=== PATIENT | female | born 1955 | race Caucasian/White ===

== ENCOUNTER 2025-04-28 16:45 | Emergency (ER) | payer MEDICARE, OTHER, SELFPAY ==
--- NOTE | ~2025-04-28 | XR_ITS ---
XR wrist LT min 3V Ordering provider: Candace Ruiz APRN History: . pain, fall . Comparison: None. FINDINGS: BONES: Possible lucency in the scaphoid bone. Follow-up advised. Postoperative changes in the distal radius. Old fracture in the ulnar styloid. JOINT SPACES: Narrowing of the radiocarpal joint. 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 SOFT TISSUES: Normal. IMPRESSION: No definite acute osseous abnormality left wrist. Possible lucency in the scaphoid bone. Follow-up ad vised. 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 Reviewed, dictated and finalized at location A. IMPRESSION: No definite acute osseous abnormality left wrist. Possible lucency in the scaph oid bone. Follow-up advised. Postoperative changes in the distal radius Narrowing of the radiocarpal joint with osteoarthritic changes of the first car pometacarpal joint.
--- OUTSIDE RECORDS SUMMARY | 2025-04-28 16:49 | XMS_ITS | Encounter Summary ---
Author Organization [facility] Address [facility] [place] [address] Care Team Providers Care Manager Customs Name Role Phone Micaela Mckay MD Primary Care Provider [phone] Darryl Hollingsworth MD Unavailable Vanessa Wilson MD Unavailable [phone] Baljinder Kent MD Unavailable [phone] Filiberto Orona MD Unavailable Blayne Christiansen MD Unavailable [phone] Lennox Tobin MD Unavailable [phone] Vanessa Wilson MD Unavailable [phone] Berto Samson MD Unavailable Lester Hendrix OD Unavailable Bryan Anderson MD Unavailable Baudilio Parish MD Unavailable [phone] Zach Khoury MD Unavailable Anton Sauer MD Unavailable Tejas Lazcano DC Unavailable Vu Lindsay MD PhD Unavailable [phone] Encounter Details Date Type Department Care Team (Late st Contact Info) Description 03/20/2021 Telephone [facility] [address] [place] [id number] Laury Sauer, RT Social History Tobacco Use Types Packs/Day Years Used Date Smoking Tobacco: Never Smokeless Tobacco: Never Alcohol Use Standard Drinks/Week Comments Yes 0 (1 standard drink = 0.6 oz pur e alcohol) very rare PHQ-2 Answer Date Recorded PHQ-2 Total Score (If total score is 3 or more points, staff should administer the PHQ-9) 0 05/23/2020 Comments No Sex and Gender Information Value Date Recorded Sex Assigned at Not on file Legal Sex Female 11:59 PM CONE [employer]RE[employer] Gender Identity Not on file Sexual Orientation Not on file 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 Not on file Not on file documented as of this encounter Plan of Treatment Not on file documented as of this encounter Visit Diagnoses Not on filedocumented in this encounter Care Teams Manager Customs Relationship Specialty Start Date End Date Micaela Mckay MD PCP - General 02/28/17 Darryl Hollingsworth MD Gastroenterology 08/24/17 10/17/24 Vanessa Wilson MD Surgeon Orthopedic Surgery 08/24/17 06/06/21 Baljinder Kent MD Otolaryngology 08/24/17 10/17/24 Filiberto Orona MD [address] [place] [address] DR MULLER B [address]ERT[address] CAR[address] [place], [place] [id number] Surgeon Orthopedic Surgery 08/24/17 Blayne Christiansen MD [address] [place] [address] DR RENZO Balderas [address] [place] [address] Obstetrics and Gynecology 08/24/17 Lennox Tobin MD [address] [place] [address] DR RENZO Balderas [address] [place] [address] General Surgery 08/24/17 Vanessa Wilson MD Surgeon Orthopedic Surgery 08/29/17 06/06/21 Berto Samson MD [address] [facility] [address] [place] [address] [id number] Consulting Physician Internal Medicine 09/30/17 Lester Hendrix OD [address] [place] [address] Optometry 03/31/18 Bryan Anderson MD [address] [place] [address] Consulting Physician Gastroenterology 05/09/19 Baudilio Parish MD [address] [place] [address] Consulting Physician Endocrinology Diabetes & Metabolism 05/12/19 Zach Khoury MD [address] [place] [address] Consulting Physician Neurology 07/09/21 Anton Sauer MD [address] [facility] [id number] [place] [address] Consulting Physician General Surgery 07/05/22 Tejas Lazcano DC [address] [place] [address] [place] [address] Referring Physician Chiropractic Medicine 08/27/23 Vu Lindsay MD PhD [address] [place] [address] Consulting Physician Orthopedic Surgery 11/22/24 documented as of this encounter
--- OUTSIDE RECORDS SUMMARY | 2025-04-28 16:49 | XMS_ITS ---
Author Organization [facility] Address [address] [place] [address] Care Team Providers Care Bag Shaker Name Role Phone Micaela Mckay MD Primary Care Provider [phone] Filiberto Orona MD Unavailable Blayne Christiansen MD Unavailable [phone] Lennox Tobin MD Unavailable [phone] Berto Samson MD Unavailable Lester Hendrix OD Unavailable Bryan Anderson MD Unavailable [phone] Baudilio Parish MD Unavailable [phone] Zach Khoury MD Unavailable Anton Sauer MD Unavailable Tejas Lazcano DC Unavailable [phone] Vu Lindsay MD PhD Unavailable [phone] Active Problems Problem Noted Date Diagnosed Date Herpes zoster without complication 01/06/2025 Assessment & Plan (01/06/2025 1:56 PM MECHANICAL ASSEMBLY TECHNICIAN): Acute, symptoms for 2 days. Vesicular rash to posterior left upper shoulder consistent with herpes zoster. Given that she just started chemo for liver mets explained valtrex may not be an option, also given that chemo is administered through a femoral sheath- she was advised to avoid NSAIDs. Can still use Voltaren gel if needed. Rx valtrex 1000mg BID x7 days [facility] but patient was advised to call oncology first to make sure. Benign colon polyp 11/11/2024 History of colon polyps 11/05/2024 Hx of adenomatous colonic polyps 09/11/2021 Overview (09/11/2021): Added automatically from request for surgery [id number] Osteoporosis, idiopathic 03/21/2021 Overview (09/01/2023): DEXA August 2023 Dissimilar scan types or analysis methods precludes assessment for calculating a significant change. Advised PTH, vitamin-D, follow-up to discuss osteoporosis treatment options AP LUMBAR SPINE L1-L4:Total BMD is 0.847 g/cm2 T-score is -1.8 LEFT HIP:Total BMD is 0.697 g/cm2 T-score is -2.0 Femoral neck BMD is 0.580 g/cm2 T-score is -2.4 FRAX: 10 year risk for a major osteoporotic fracture is 13 %, 10 year risk for a hip fracture is 3.0 % DEXA March 2021 LEFT FEMORAL NECK: T-score -2.3. Bone mineral density 0.594 g/sq/cm. LEFT TOTAL HIP: T-score -1.8. Bone mineral density 0.726 g/sq/cm. This is a statistically significant decrease from prior exam. LUMBAR SPINE: T-score -1.5. Bone mineral density 0.878 g/sq/cm. This is a statistically significant decrease from prior exam. Sleep disorder breathing 05/30/2020 Overview (07/09/2021): Test shy of 0 F a July 2021 referred to sleep medicine Impression: 1. Reduced sleep efficiency. 2. Mild to moderate snoring. 3. Apneas and hypopneas were present. Present study fall short of overall CMS criteria for obstructive sleep apnea syndrome. 4. Even though the overall AHI fell short, patient had severe sleep disorder breathing in the REM supine. 5. Given the night to night variability, consider repeating a sleep study to further assess for sleep disorder breathing. 6. Severe periodic limb movements of sleep were noted. 7.Sleep hygiene should be reviewed to assess factors that may improve sleep quality. 8.Weight management and regular exercise should be initiated or continued . 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 Samson s/p TACE. 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 -f/b [place] outpatient VIR recommendations for discharge medications: Oxycodone 5 mg, 1 tab PO Q4 hours PRN pain #20, no refills Zofran 8 mg, 1 tab PO BID PRN nausea #10, no refills Senna 8.6 mg, 1 tab PO QHS PRN constipation #10, no refills --> will change to Miralax per pt preference - VIR recommendations for discharge follow up: Follow up liver MRI in 4-5 weeks to be arranged by patient's referring physician. Assessment & Plan (03/24/2019 9:12 PM CDT): Chronic. Plan Monitor LFTs. F/U with Oncologist. Neuroendocrine cancer 09/08/2017 Family history of pancreatic cancer 08/29/2017 Overview (08/29/2017): Identical twin Pancreatic cancer diagnosed a August 2017 at age 63 Family history of colon cancer 08/29/2017 Overview (08/29/2017): Twin sister diagnoses at 61 Chronic rhinitis 08/24/2017 Hypertension, essential 04/16/2014 Overview (03/05/2017): Benign essential HTN Assessment & Plan (12/30/2024 6:14 PM MECHANICAL ASSEMBLY TECHNICIAN): Continue home coreg Assessment & Plan (11/30/2024 3:17 PM MECHANICAL ASSEMBLY TECHNICIAN): Continue home coreg Assessment & Plan (07/03/2023 12:46 PM CDT): BP stable in office today on current therapy. No acute findings on exam. Continue current regimen and low salt diet. Multiple-type hyperlipidemia 04/16/2014 Overview (03/05/2017): Hyperlipemia, mixed Hypothyroidism, unspecified 04/16/2014 Overview (03/07/2017): Hypothyroidism Assessment & Plan (12/30/2024 6:14 PM MECHANICAL ASSEMBLY TECHNICIAN): Continue home LT4 Assessment & Plan (11/30/2024 3:17 PM MECHANICAL ASSEMBLY TECHNICIAN): Continue home synthroid Assessment & Plan (06/05/2020 1:29 PM CDT): Continue levothyroxine 150 mcg daily Patient clinically and biochemically euthyroid Current Treatment and Therapy Plans Octreotide 28 Day Cycles - Carcinoid* Plan Start Date:10/26/2017 Plan Provider:Berto Samson MD Linked Problems Metastatic malignant neuroen docrine 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 (HCC) Treatment Medications Current Day (Day 1 , Cycle 99 - Planned for 05/02/2025) octreotide (SandoSTATIN LAR) octreotide LAR (SandoSTATIN LAR) octreotide LAR (SandoSTATIN LAR) extende d release intramuscular injection 30 mg Past Treatment and Therapy Plans Oncology Supportive Care Therapy Plan Plan Name Start Date Discontinue Date Treatment Medications Discontinue Reason Plan Provider IV MAINTENANCE THERAPY PLAN 05/11/2018 02/10/2024 No medications scheduled. Automatic discontinuation of dormant plans eBrto Samson MD Lifetime Dose Tracking * Chemical Lifetime Dose Automatic Entry Manual Entr y doxorubicin 54.645 mg/m2 (100 mg) 54.645 mg/m2 (100 m g) 0 mg/m2 (0 mg) Fluoro Time 35 minutes 35 minutes 0 minutes doxorubicin isotoxic equivalent (Please manually verify calculation) 54.645 mg/m2 (100 mg) 54.645 mg/m2 (100 mg) 0 mg/m2 (0 mg) Air kerma at the reference point (Ka,r) 1,076 mGy 1,076 mGy 0 mGy Resolved Problems Problem Noted Date Diagnosed Date Resolved Date Acute pain of left shoulder 07/03/2023 11/03/2024 Assessment & Plan (07/03/2023 12:53 PM CDT): Sharp stabbing for 2-3 days that will radiate to L lateral chest and cause SOB. No acute findings on exam, mild tenderness to L upper trapezius. No acute cardiac symptoms. Likely muscular in nature. Encouraged Ibuprofen as needed, heat/ice as tolerated. Call if pain not improved in 2 weeks. Diverticulitis of colon with perforation 03/21/2022 11/03/2024 Overview (03/21/2022): Flagyl , Septra combination used to treat acute diverticulitis left lower quadrant, 1. Diverticulitis of the descending colon with contained perforation. No evidence of abscess. 2. No small bowel obstruction or appendicitis. 3. Similar appearance of hepatic metastatic disease to recent liver MRI. THIS IS AN ELECTRONICALLY VERIFIED FINAL REPORT 03/21/2022 4:36 PM Electronically signed by Dhruv Montalvo M.D. Assessment & Plan (05/21/2022 11:12 AM CDT): Patient has been on antibiotics since diagnosed, and finally is pain free and tolerated food intake over the last 10 days. At this time, recommended to stop oral antibiotics and schedule follow up with her previous surgeon, at [place], due to her previous surgical history. If symptoms return, recommend going to [facility]. Assessment & Plan (05/09/2022 4:05 PM CDT): Recently diagnosed with acute diverticulitis with contained perforated proven on CT. She continues to have left lower quadrant pain and 10 and has remained on oral metronidazole and Bactrim. I do not recommend a repeat colonoscopy since she just had 1 performed in October 2021. I reviewed the colonoscopy report from October 2021 that revealed 5 polyps and pancolonic diverticulosis. I do recommend referral and evaluation for colectomy because of the complicated diverticular disease. She was advised to continue antibiotics and to call me if pain persists after she completes the course. Assessment & Plan (04/05/2022 1:52 PM CDT): Patient seen 2 weeks ago with reports of acute LLQ abdominal pain. CT performed and revealed acute diverticulitis with perforation. She completed a course of bactrim and flagyl and pain significantly improved. She had f/u CT scan that revealed continued acute diverticulitis but no signs of perforation or abscess. Given no pain on exam and patient reporting much improved, will monitor. Discussed with Dr. Mckay and we will continue Bactrim and Flagyl x 2 more weeks given the microperforation on previous scan. Will follow up post antibiotic or sooner if needed. She will be referred by to her GI specialist Dr. Anderson Assessment & Plan (04/19/2022 2:23 PM CDT): She has a contained microperforation of the descending colon. She is doing much better with antibiotics. Bowels are a little loose at times, but other times soft and formed. There is no blood in the stools. I suggested an active yogurt culture daily or a probiotic to see if this helps. Check some labs today and get a follow-up CT scan in about one week. Return after CT scan. If she develops worse symptoms before the CT scan, she should let us know or go to the emergency room. LLQ pain 03/20/2022 04/17/2022 Assessment & Plan (04/13/2022 7:29 PM CDT): She has a history of carcinoid syndrome and is on octreotide once a month. The octreotide makes her little constipated. Yesterday she had onset of severe pain in the left lower quadrant. She was doubled over. However, she did have a relatively normal bowel movement. There was no blood or mucus in the stool. She felt chilled and had malaise. Today she felt a little bit better, pain is still at least moderate. On exam, bowel sounds are normal, and the right side of the abdomen is nontender. She has exquisite tenderness on the left side with some voluntary guarding, but no rigidity or rebound tenderness. We ordered a stat CT and CBC with BMP. We will get her started on antibiotics for possible diverticulitis (history of multiple small mouth diverticuli on colonoscopy). Depending on how she does, follow-up tomorrow in the office. Acute bacterial sinusitis 05/15/2021 Assessment & Plan (05/15/2021 8:56 AM CDT): Patient presents with sinus pressure, cough, congestion, and sore throat x 3 weeks. She has been using her OTC sinus care without change or improvement. She has symptoms and exam findings consistent with acute sinusitis. She was encouraged to continue with sinus rinses, flonase and Mucinex. She is to call with any worsening or persistent symptoms. Allergic rhinitis 04/17/2021 01/11/2022 Assessment & Plan (04/17/2021 9:18 AM CDT): Avoid ear cleaning techniques Avoid water to ears Flonase 2 sprays into each nostril while looking down over the sink, do not sniff in or blow nose after use for at least 30 minutes Continue Singulair and start Zyrtec (cetirizine) 10 mg daily as needed Bilateral impacted cerumen 04/17/2021 0 01/11/2022 Assessment & Plan (04/17/2021 9:18 AM CDT): Avoid ear cleaning techniques Avoid water to ears Type 2 diabetes mellitus wit hout complication, without long-term current use of insulin 12/14/2020 11/03/2024 Right wrist pain 08/14/2020 07/03/2023 Assessment & Plan (08/14/2020 4:04 PM CDT): Right wrist pain and swelling after a fall this morning while walking the dog. We will get x-rays today of radius and ulna. Continue to use RICE therapy. Tramadol given for 50mg BID as needed with tylenol and pain agreement signed. WE will call her with results. Stress at home 05/13/2019 05/17/2020 Overview (11/12/2019): became very ill after lumbar spine surgery with an infection Adrenal mass 02/15/2019 11/03/2024 Assessment & Plan (06/05/2020 1:28 PM CDT): Small and stable in size, consistent with adenoma. Will check DST this year Follow-up images of adrenal nodule can be done with her scheduled images every 6 months for her neuroendocrine tumor Assessment & Plan (02/15/2019 7:29 PM CDT): Small in size, consistent with adenoma. While it reported as new lesion on most recent MRI, it can still be seen on previous MRI from October and May 2018. This is unlikely new within the last year. However we will continue surveillance with images Will check adrenal function with dexamethasone suppression test, and serum metanephrine/catecholamines. Follow-up images of adrenal nodule can be done with her scheduled images every 6 months for her neuroendocrine tumor May consider CT adrenal if size increased Post-surgical hypothyroidism 02/15/2019 05/17/2020 Assessment & Plan (02/15/2019 2:49 PM CDT): Continue levothyroxine 150 mcg daily Check thyroid function test Patient clinically and biochemically euthyroid RUQ pain 11/02/2018 05/17/2020 Overview (11/02/2018): Added automatically from request for surgery [id number] Gastroesophageal reflux disease 11/02/2018 01/11/2022 Overview (11/02/2018): Added automatically from request for surgery [id number] Assessment & Plan (03/24/2019 9:17 PM CDT): Chronic. Doing better on PPI and H2RA at bedtime. She was counseled about eating habits, lifestyle. Sensation of fullness in left ear 07/30/2018 05/17/2020 Assessment & Plan (07/30/2018 11:46 AM CDT): If hearing does not seem to be back to normal, will obtain a hearing test ETD (Eustachian tube dysfunction), left 07/30/2018 12/14/2020 Assessment & Plan (07/30/2018 11:46 AM CDT): Flonase 2 sprays into each nostril while looking down over the sink, do not sniff in or blow nose after use. Continue Protonix in the morning, if no improvement in heartburn in one more month, then start Zantac 300 mg at bedtime. If hearing does not seem to be back to normal, will obtain a hearing test Laryngopharyngeal reflux (LPR) 07/30/2018 12/14/2020 Assessment & Plan (07/30/2018 11:46 AM CDT): Continue Protonix in the morning, if no improvement in heartburn in one more month, then start Zantac 300 mg at bedtime. LPR discussed and Handout provided Insomnia, transient 10/07/2017 03/31/20 18 Overview (10/07/2017): Trial trazodone October 2017 for cancer associated insomnia Internal derangement of left knee 08/29/2017 11/03/2024 Overview (08/29/2017): Bucket tear left knee meniscus removed Dr. Love July 2017 Angiolipoma 08/29/2017 03/31/2018 Overview (08/29/2017): Steve lazaro remove the tumor right thigh July 2017 benign pathology Left upper quadrant pain 08/29/201712/2017 Viral URI 08/29/2017 03/31/2018 Obesity (BMI 30-39.9) 08/24/20172023 Mass of lower extremity 12/26/2016 0512/2017 Mass of breast 08/24/2014 03/31/2018 Overview (03/06/2017): Breast mass Chronic GERD 04/16/2014 11/03/2024 Overview (03/05/2017): Acid reflux disease Neurogenic bladder 04/16/2014 8 Overview (03/05/2017): Neurogenic bladder Vitamin D deficiency 04/16/2014 018 Overview (03/05/2017): Vitamin D deficiency Pain in female pelvis 02/21/20142017 Myofascial pain 02/21/2014 03/31/2018 Arthritis 02/16/2014 11/03/2024 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
--- OUTSIDE RECORDS SUMMARY | 2025-04-28 16:49 | XMS_ITS | Referral Summary ---
Author Organization [facility] Address [address] [place] [address] Care Team Providers Care Front Desk Lead Name Role Phone Micaela Ren MD Primary Care Provider [phone] Filiberto Orona MD Unavailable Blayne Christiansen MD Unavailable [phone] Lennox Tobin MD Unavailable [phone] Berto Samson MD Unavailable Lester Hendrix OD Unavailable Bryan Anderson MD Unavailable [phone] Baudilio Parish MD Unavailable [phone] Zach Khoury MD Unavailable Anton Sauer MD Unavailable Tejas Lazcano DC Unavailable [phone] Vu Lindsay MD PhD Unavailable [phone] Encounters Date Type Department Care Team Description 04/28/[address] 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9) 03/28/2025 Orders Only [facility] [address] [place] [address] Floor [address] [place] [address] Berto Samson MD 03/07/2025 7:30 AM CDT Lab [facility] [address] [place] [phone] 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) 03/07/2025 8:00 AM CDT Infusion [address] [address] 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) from Last 3 Months Allergies Active Allergy Reactions Criticality Noted Date Comments Amoxicillin-Pot Clavulanate Diarrhea Low 07/23/20 17 Reaction: Diarrhea, Medications octreotide LAR (SandoSTATIN LAR) 30 mg suspension,extende d rel reconIndications:M etastatic malignant neuroendocrine 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 (HCC) 1 each (30 mg total) every 28 (twenty-eight) days Active multivitamin capsule Take 1 capsule by mouth daily Active cholecalciferol (VITAMIN D-3) 2000 unit capsule 2 capsules (4,000 Units total) Active calcium-magnesium- zinc tablet Take by mouth Acti ve diclofenac sodium (VOLTAREN) 1 % gel Apply topically as needed Active turmeric root extract 500 mg capsule Take 1 capsule by mouth 2 (two) times a day 03/22/20 22 Active albuterol HFA (PROVENTIL HFA,VENTOLIN HFA,PROAIR HFA) 90 mcg/actuation inhalerIndications :Wheezing Inhale 2 puffs every 4 (four) hours as needed for wheezing 8.5 each 2 11/03/20 24 Active azelastine (ASTELIN) 137 mcg (0.1 %) nasal sprayIndications:C hronic rhinitis Administer 1 spray into each nostril 2 (two) times a day Use in each nostril as directed 30 mL 11 12/04/20 24 Active carvediloL (COREG) 25 mg tabletIndications: Benign hypertension Take 0.5-1 tablets (12.5-25 mg total) by mouth 2 (two) times a day with meals Take 12.5 mg in the A.M. and 25 mg in the P.M. to keep blood pressure below 130/80 180 tablet 2 11/03/20 24 Active fluticasone propionate (FLONASE) 50 mcg/actuation nasal sprayIndications:C hronic rhinitis Administer 2 sprays into each nostril daily 3 each 1 11/03/20 24 Active ipratropium (ATROVENT) 21 mcg (0.03 %) nasal sprayIndications:C hronic rhinitis Administer 2 sprays into each nostril 2 (two) times a day as needed for rhinitis 30 mL 5 11/03/20 24 Active montelukast (SINGULAIR) 10 mg tabletIndications: Chronic rhinitis Take 1 tablet (10 mg total) by mouth nightly 90 tablet 2 11/03/20 24 Active rosuvastatin (CRESTOR) 20 mg tabletIndications: Multiple-type hyperlipidemia Take 1 tablet (20 mg total) by mouth daily 90 tablet 2 11/03/20 24 Active levothyroxine (SYNTHROID) 125 mcg tabletIndications: Hypothyroidism, adult Take 1 tablet (125 mcg total) by mouth nightly 90 tablet 2 11/03/20 24 Active docusate sodium (COLACE) 100 mg capsuleIndications :constipation Take 1 capsule (100 mg total) by mouth 2 (two) times a day Active polyethylene glycol (MIRALAX) 17 gram/dose bulk powder Take 17 g by mouth daily as needed (as needed to achieve daily BM) 510 g 12/01/19 25 Active ondansetron ODT (ZOFRAN-ODT) 4 mg disintegrating tabletIndications: Nausea and Vomiting Take 1 tablet (4 mg total) by mouth every 6 (six) hours as needed for nausea or vomiting 20 tablet 12/31/19 25 Active Additional Information Patient not taking.Reported on 03/29/2025 senna (SENOKOT) 8.6 mg tablet Take 1 tablet by mouth daily for 30 doses 30 tablet 12/31/19 25 Active LORazepam (ATIVAN) 0.5 mg tablet Take 1 tablet (0.5 mg total) by mouth as needed for anxiety Take one tablet one hour prior to MRI. May take second tablet just prior to MRI if still feeling anxiety 2 tablet 04/19/20 25 Active LORazepam (ATIVAN) 0.5 mg tablet Take 1 tablet (0.5 mg total) by mouth as needed for anxiety Take one tablet one hour prior to MRI. May take second tablet just prior to MRI if still feeling anxiety 2 tablet 01/12/20 25 025 Discontin ued(Reord er) Active Problems Problem Noted Date Diagnosed Date Herpes zoster without complication 01/06/2025 Assessment & Plan (01/06/2025 1:56 PM DENTAL ASSISTANT INSTRUCTOR): Acute, symptoms for 2 days. Vesicular rash [...] (09/11/2021): Added automatically from request for surgery [id number] Osteoporosis, idiopathic 03/21/2021 Overview (09/01/2023): DEXA August [...] continued . 9.Avoid alcohol sedatives and other CREDIT CONTROL ADMINISTRATOR depression that may worsen sleep and disrupt normal sleep architecture Metastatic malignant neuroendocrine tumor to demetrio er 09/09/2017 Assessment & Plan (12/31/2024 11:37 AM DENTAL ASSISTANT INSTRUCTOR): Metastatic NET to liver on octreotide (next on 01/10) followed by Dr. Samson s/p TACE. -no issues post procedure -dc home with IR recommendation medications -outpatient follow up w onc and IR Assessment & Plan (12/01/2024 9:47 AM DENTAL ASSISTANT INSTRUCTOR): Metastatic neuroendocrine tumor to the liver on [...] HTN Assessment & Plan (12/30/2024 6:14 PM DENTAL ASSISTANT INSTRUCTOR): Continue home coreg Assessment & Plan (11/30/2024 3:17 PM DENTAL ASSISTANT INSTRUCTOR): Continue home coreg Assessment & Plan (07/03/2023 12:46 PM CDT): BP stable in office today on current therapy. No acute findings on exam. Continue current regimen and low salt diet. Multiple-type hyperlipidemia 04/16/2014 Overview (03/05/2017): Hyperlipemia, mixed Hypothyroidism, unspecified 04/16/2014 Overview (03/07/2017): Hypothyroidism Assessment & Plan (12/30/2024 6:14 PM DENTAL ASSISTANT INSTRUCTOR): Continue home LT4 Assessment & Plan (11/30/2024 3:17 PM DENTAL ASSISTANT INSTRUCTOR): Continue home synthroid Assessment & Plan (06/05/2020 1:29 PM CDT): Continue levothyroxine 150 mcg daily Patient clinically and biochemically euthyroid Resolved Problems Problem Noted Date Diagnosed Date [...] follow up with her previous surgeon, at [facility], due to her previous surgical history. If symptoms return, recommend going to [facility]. Assessment & Plan (05/09/2022 4:05 PM CDT): [...] much improved, will monitor. Discussed with Dr. Ren and we will continue Bactrim and Flagyl [...] (11/02/2018): Added automatically from request for surgery [id number] Gastroesophageal reflux disease 11/02/2018 01/11/2022 Overview (11/02/2018): Added automatically from request for surgery [id number] Assessment & Plan (03/24/2019 9:17 PM CDT): [...] (BMI 30-39.9) 08/24/20172023 Mass of lower extremity 12/26/201612/2017 Mass of breast 08/24/2014 03/31/2018 Overview (03/06/2017): Breast mass Chronic GERD 04/16/2014 11/03/2024 Overview (03/05/2017): Acid reflux disease Neurogenic bladder 04/16/2014 8 Overview (03/05/2017): Neurogenic bladder Vitamin D deficiency 04/16/2014 018 Overview (03/05/2017): Vitamin D deficiency Pain in female pelvis 02/21/20142017 Myofascial pain 02/21/2014 03/31/2018 Arthritis 02/16/2014 11/03/2024 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 Immunizations Immunization Administration Dates Next Due COVID-19 mRNA (Wearable Intelligence) 0.3 m L (30 mcg) vaccine (12 years and up) 09/24/2023 Influenza, Quad, Adjuvantated, Intramuscular ,08/11/2020 Influenza, Quadrivalent, Hig h Dose, Preservative Free, Intrr 09/24/2023,08/30/2021 Influenza, Quadrivalent, Split, Intramuscular ,08/01/2016 Influenza, Trivalent, Adjuvanted, Intramuscular 09/01/2024 Influenza, Trivalent, High D ose, Split, Preservative Free, Intramuscular 09/07/2019 Influenza, Trivalent, IM (MDV) 08/31/2015 Influenza, Unspecified 09/04/2018 Moderna SARS-CoV-2 Monovalent Vaccination (12+ Y RS) 02/28/2021,01/31/2021 Pfizer Sars-Cov-2 Bivalent Vaccination (12+ YRS) 09/24/2022 Pneumococcal Conjugate PCV 13 09/09/2017 Pneumococcal Conjugate Pcv20 09/01/2024 Pneumococcal Polysaccharide PPV23 05/12/2019 RSV Vaccine, Pref, Recombina nt, Subunit, Adjuvanted, PF, IM (Arexvy) 09/08/2023 Tdap 09/08/2023,07/15/2013 ZOSTER Recombinant 06/05/2018,03/30/2018 Social History Tobacco Use Types Packs/Day Years Used Date Smoking Tobacco: Never Smokeless Tobacco: Never Tobacco Cessation:Counseling Given: Not Answered Alcohol Use Standard Drinks/Week Comments Yes 0 (1 standard drink = 0.6 oz pur e alcohol) very rare AUDIT-C Answer Date Recorded Q1: How often do you have a drink containing alcohol? Never 11/22/2024 Q2: How many drinks containi ng alcohol do you have on a typical day when you are drinking? Patient does not drink Frequency of Binge Drinking Not on file 11/01 PHQ-2 Answer Date Recorded PHQ-2 Total Score (If total score is 3 or more points, staff should administer the PHQ-9) 0 11/03/2024 Personal Safety Answer Date Recorded Have you ever been in or are you currently in a harmful physical or emotional relationship or is someone making you feel afraid or unsafe? 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 Not on file Not on file Last Filed Vital Signs Vital Sign Reading Time Taken Comments Blood Pressure 108/72 04/04/2025 8:10 AM CDT Pulse 56 04/04/2025 8:10 AM CDT Temperature 36.3 C (97.4 F) 04/04/2025 8:10 AM CDT Respiratory Rate 18 04/04/2025 8:10 AM CDT Oxygen Saturation 95% 04/04/2025 8:10 AM CDT Inhaled Oxygen Concentration - - Weight 72.7 kg (160 lb 3.2 oz) 04/04/2025 8:10 A M CDT Height 162.6 cm (5' 4) 03/29/2025 8:17 AM CDT Body Mass Index 27.5 03/29/2025 8:17 AM CDT Plan of Treatment Not on file Medical Devices Implanted Type Area Filemaker Developer Device Identifier Shelf Expiration Date Model / Serial / Lot [employer] Mynx Control 6-7fr 2 Mode Balloon Catheter Sealant Lock Syringe [id number] - [id number] Implanted:Qty: 1 on 11/30/2024 at [facility] [employer] [id number] 10/14/2026 [id number] / / [id number] Mynx Control 6-7fr 2 Mode Balloon Catheter Sealant Lock Syringe [id number] - [id number] Implanted:Qty: 1 on 12/30/2024 by Blake Gallegos MD at [facility] Right: Groin [employer] 10/14/2026 [id number] / / [id number] Procedures Procedure Name Priority Date/Time Associated Diagnosis Comments MRI ABDOMEN W WO CONTRAST Schedule Routine, Read Routine (OP Routine) 04/28/2025 8:49 AM CDT 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) EGFR STAT 04/04/2025 7:47 AM CDT 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) DIFFERENTIAL AUTO STAT 04/04/2025 7:4 7 AM CDT 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) CBC WITH AUTO DIFFERENTIAL STAT 04/04/2025 7:47 AM CDT 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) SEROTONIN Routine 04/04/2025 7:47 AM CDT 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) COMPREHENSIVE METABOLIC PANEL STAT 04/04/2025 7:47 AM CDT 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) CHROMOGRANIN A Routine 04/04/2025 7:47 AM CDT 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) EGFR STAT 03/07/2025 7:42 AM CDT 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) DIFFERENTIAL AUTO STAT 03/07/2025 7:4 2 AM CDT 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) CBC WITH AUTO DIFFERENTIAL STAT 03/07/2025 7:42 AM CDT 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) SEROTONIN Routine 03/07/2025 7:42 AM CDT 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) COMPREHENSIVE METABOLIC PANEL STAT 03/07/2025 7:42 AM CDT 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) CHROMOGRANIN A Routine 03/07/2025 7:42 AM CDT 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) EGFR STAT 02/07/2025 10:20 AM CDT 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) DIFFERENTIAL AUTO STAT 02/07/2025 10:20 AM CDT 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) CBC WITH AUTO DIFFERENTIAL STAT 02/07/2025 10:20 AM CDT 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) SEROTONIN Routine 02/07/2025 10:20 AM CDT 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) COMPREHENSIVE METABOLIC PANEL STAT 02/07/2025 10:20 AM CDT 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) CHROMOGRANIN A Routine 02/07/2025 10:20 AM CDT 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) T4, FREE Routine 02/07/2025 10:20 AM CDT Hypothyroidism, adult TSH Routine 02/07/2025 10:20 AM CDT Hypothyroidism, adult COLONOSCOPY 11/11/2024 11:18 AM DENTAL ASSISTANT INSTRUCTOR HM DIABETES EYE EXAM Routine 11/09/2024 3:31 PM DENTAL ASSISTANT INSTRUCTOR ALBUMIN CREATININE RATIO, URINE Routine 09/20/2024 10:58 AM CDT Type 2 diabetes mellitus without complication, without long-term current use of insulin (HCC) HEMOGLOBIN A1C Routine 09/20/2024 10:15 AM CDT Type 2 diabetes mellitus without complication, without long-term current use of insulin (HCC) SCREENING MAMMOGRAM BILATERAL W DAMON Schedule Routine, Read Routine (OP Routine) 09/14/2024 10:03 AM CDT Breast cancer screening by mammogram LIPID PANEL Routine 03/12/2024 7:59 AM CDT Annual physical exam DEXA AXIAL SKELETON BONE DENSITY 1 OR MORE SITES Schedule Routine, Read Routine (OP Routine) 09/01/2023 11:41 AM CDT Menopause HEPATITIS C ANTIBODY Routine 08/29/2017 7:12 AM CDT Exposure to hepatitis C from Last 3 Months or Most Recently Relevant to Health Maintenance Results * MRI Abdomen W WO Contrast (04/28/2025 8:49 AM CDT) Anatomical Region Laterality Modality Body N/A Magnetic Resonan ce 04/28/2025 11:1 3 AM CDT Impressions 04/28/2025 11:14 AM CDT 1. Status post TACE of the right and left hemiliver. There is mild interval increase in size of lesions in hepatic segments 7/8 and 8/5, and mild interval decrease in size of a lesion in hepatic segment 2. There is no significant difference in post-contrast enhancement and diffusion within these lesions, which remain viable. 2. Multiple additional smaller hepatic metastases in the bilateral lobes of the liver are similar in appearance. No new hepatic metastases. Dictated by: Mitzy Velarde M.D. The radiology attending physician has personally reviewed this study, and had reviewed and/or edited this written report and agrees with it. Electronically signed by: Alexei Rossi M.D. Narrative 04/28/2025 11:14 AM CDT EXAMINATION: MAGNETIC RESONANCE IMAGING OF THE ABDOMEN WITH AND WITHOUT CONTRAST HISTORY: Metastatic malignant neuroendocrine tumor status post TACE of the right hepatic lobe on 11/30/2024 and left hepatic lobe on 12/30/2024. TECHNIQUE: Magnetic resonance imaging of the abdomen was performed prior to and following the uneventful administration of intravenous Gadolinium contrast. Protocol: Liver Contrast: Contrast: Eovist 10 mL COMPARISON: MRI abdomen, 01/27/2025 FINDINGS: Liver: No fat or iron deposition. - Bile ducts: Mild biliary ductal dilatation primarily in the right hemiliver due to compression by adjacent static lesions. - Focal liver lesions: Lesion 1: Location: Hepatic segments 7 and 8, series 47, image 23 Size: 10.2 x 9.8 cm, previously 10.3 x 9.0 cm Imaging features: T2 mildly hyperintense soft tissue with multiple cystic components, mild postcontrast enhancement with enhancement more prominent within the soft tissue in the cranial aspect of the lesion (series 33, image 28), heterogeneous diffusion restriction. There is interval increase in soft tissue in the superior aspect of the lesion. Characterization: metastasis Lesion 2: Location: Hepatic segment 2, series 47, image 31 Size: 8.3 x 5.4 cm, previously 9.8 x 6.2 cm Imaging features: T2 mildly hyperintense soft tissue with multiple cystic components, mild postcontrast enhancement with enhancement, heterogeneous diffusion restriction. Mild interval increase in cystic components within the lesion suggestive of mildly increased necrosis. Characterization: metastasis Lesion 3: Location: Hepatic segment 4A, series 47, image 33 Size: 1.5 x 1.1 cm, previously 1.8 x 1.4 cm Imaging features: Mildly T2 hyperintense, hypoenhancing with delayed washout, diffusion restriction Characterization: metastasis Lesion 4: Location: Segment 8/5, series 47, image 37 Size: 10.2 x 6.8 cm, previously 9.5 x 6.6 cm Imaging features: T2 mildly hyperintense soft tissue with multiple cystic components, mild postcontrast enhancement with enhancement, heterogeneous diffusion restriction. Interval increase in necrosis. Characterization: metastasis Lesion 5: Location: Hepatic segment 6, series 47, image 53 Size: 2.2 x 1.7 cm, previously 2.5 x 2.0 cm Imaging features: T2 mildly hyperintense soft tissue with multiple cystic components, mild postcontrast enhancement with enhancement with a peripheral enhancing nodule, heterogeneous diffusion restriction Characterization: metastasis Additional subcentimeter lesions are seen in hepatic segment 6 and 4A which appear similar to mildly increased in prominence in comparison to prior MRI. - Vasculature: The portal and hepatic veins are patent. Gallbladder: Normal Pancreas: Normal. Pancreas divisum. Spleen: Normal Adrenals: 1.2 cm nodular thickening of the left adrenal gland with an underlying adenoma. Right adrenal gland is within normal limits. Kidneys: Normal Other Findings: Trace bilateral pleural effusions. Mediastinum is normal. No ascites. Bone island in the L5 vertebral body. No suspicious osseous lesions. No lymphadenopathy. Abdominal aorta is normal in caliber. Procedure Note Alexei Rossi MD - 04/28/2025 EXAMINATION: MAGNETIC RESONANCE IMAGING OF THE ABDOMEN WITH AND WITHOUT CONTRAST HISTORY: Metastatic malignant neuroendocrine tumor status post TACE of the right hepatic lobe on 11/30/2024 and left hepatic lobe on 12/30/2024. TECHNIQUE: Magnetic resonance imaging of the abdomen was performed prior to and following the uneventful administration of intravenous Gadolinium contrast. Protocol: Liver Contrast: Contrast: Eovist 10 mL COMPARISON: MRI abdomen, 01/27/2025 FINDINGS: Liver: No fat or iron deposition. - Bile ducts: Mild biliary ductal dilatation primarily in the right hemiliver due to compression by adjacent static lesions. - Focal liver lesions: Lesion 1: Location: Hepatic segments 7 and 8, series 47, image 23 Size: 10.2 x 9.8 cm, previously 10.3 x 9.0 cm Imaging features: T2 mildly hyperintense soft tissue with multiple cystic components, mild postcontrast enhancement with enhancement more prominent within the soft tissue in the cranial aspect of the lesion (series 33, image 28), heterogeneous diffusion restriction. There is interval increase in soft tissue in the superior aspect of the lesion. Characterization: metastasis Lesion 2: Location: Hepatic segment 2, series 47, image 31 Size: 8.3 x 5.4 cm, previously 9.8 x 6.2 cm Imaging features: T2 mildly hyperintense soft tissue with multiple cystic components, mild postcontrast enhancement with enhancement, heterogeneous diffusion restriction. Mild interval increase in cystic components within the lesion suggestive of mildly increased necrosis. Characterization: metastasis Lesion 3: Location: Hepatic segment 4A, series 47, image 33 Size: 1.5 x 1.1 cm, previously 1.8 x 1.4 cm Imaging features: Mildly T2 hyperintense, hypoenhancing with delayed washout, diffusion restriction Characterization: metastasis Lesion 4: Location: Segment 8/5, series 47, image 37 Size: 10.2 x 6.8 cm, previously 9.5 x 6.6 cm Imaging features: T2 mildly hyperintense soft tissue with multiple cystic components, mild postcontrast enhancement with enhancement, heterogeneous diffusion restriction. Interval increase in necrosis. Characterization: metastasis Lesion 5: Location: Hepatic segment 6, series 47, image 53 Size: 2.2 x 1.7 cm, previously 2.5 x 2.0 cm Imaging features: T2 mildly hyperintense soft tissue with multiple cystic components, mild postcontrast enhancement with enhancement with a peripheral enhancing nodule, heterogeneous diffusion restriction Characterization: metastasis Additional subcentimeter lesions are seen in hepatic segment 6 and 4A which appear similar to mildly increased in prominence in comparison to prior MRI. - Vasculature: The portal and hepatic veins are patent. Gallbladder: Normal Pancreas: Normal. Pancreas divisum. Spleen: Normal Adrenals: 1.2 cm nodular thickening of the left adrenal gland with an underlying adenoma. Right adrenal gland is within normal limits. Kidneys: Normal Other Findings: Trace bilateral pleural effusions. Mediastinum is normal. No ascites. Bone island in the L5 vertebral body. No suspicious osseous lesions. No lymphadenopathy. Abdominal aorta is normal in caliber. IMPRESSION: 1. Status post TACE of the right and left hemiliver. There is mild interval increase in size of lesions in hepatic segments 7/8 and 8/5, and mild interval decrease in size of a lesion in hepatic segment 2. There is no significant difference in post-contrast enhancement and diffusion within these lesions, which remain viable. 2. Multiple additional smaller hepatic metastases in the bilateral lobes of the liver are similar in appearance. No new hepatic metastases. Dictated by: Mitzy Velarde M.D. The radiology attending physician has personally reviewed this study, and had reviewed and/or edited this written report and agrees with it. Electronically signed by: Alexei Rossi M.D. Berto Samson MD IMG MRI PROCEDURES Final Result * eGFR (04/04/2025 7:47 AM CDT) eGFR 82 >=60 mL/min/1. 73 m2 Comment: Interpretive Data Reference Interval Normal >/= 90 mL/min/1.73m2 Mildly decreased* 60 - 89 mL/min/1.73m2 Mildly to moderately decreased 45 - 59 mL/min/1.73m2 Moderately to severely decreased 30 - 44 mL/min/1.73m2 Severely decreased 15 - 29 mL/min/1.73m2 Kidney Failure < 15 mL/min/1.73m2 *Relative to young adult level Estimated glomerular filtration rate is determined by the 2020 CKD-EPI equation recommended by the National Kid[employer] (A Unifying Approach to GFR Estimation: Recommendations of the NKF-ASK Task Force on Reassessing the Inclusion of Race in Diagnosing Kidney Disease, JASN 2020). The CKD-EPI equation should not be used for patients with unstable renal function and has not been validated in children and those over 70. Current interpretive data was last reviewed 2021. Testing performed by: [facility], [place] [address] Blood 04/04/2025 7:47 AM CDT 04/04/2025 7:47 AM CDT us Berto Samson MD LAB BLOOD ORDERABLES Otilia l Result [facility] [address] Department [place] [address] * Differential, auto (04/04/2025 7:47 AM CDT) Neutrophil abs 3.07 1.50 - 6.50 K/cumm Comment:Testing performed by : [facility] [place] [address] Imm gran abs 0.01 0.00 - 0.10 K/cumm CERNER CH Comment:Testing performed by : [facility] [place] [address] Lymphocyte abs 1.79 0.80 - 3.30 K/cumm CERNER CH Comment:Testing performed by : [facility] [place] [address] Monocyte abs 0.52 0.20 - 0.80 K/cumm CERNER CH Comment:Testing performed by : [facility] [place] [address] Eosinophil abs 0.15 0.00 - 0.50 K/cumm CERNER CH Comment:Testing performed by : [facility] [place] [address] Basophil abs 0.05 0.00 - 0.10 K/cumm CERNER CH Comment:Testing performed by : [facility] [place] [address] Neutrophil pct 54.9 % CERNER CH Comment: Interpretive Data Percent cell count reference ranges are not reported, since discordance with absolute values may lead to misinterpretation of CBC data. Current Interpretive Data was last revised on 2018. Testing performed by: [facility] [place] [address] Imm gran pct 0.2 % CERNER CH Comment: Interpretive Data Percent cell count reference ranges are not reported, since discordance with absolute values may lead to misinterpretation of CBC data. Current Interpretive Data was last revised on 2018. Testing performed by: [facility] [place] [address] Lymphocyte pct 32.0 % CERNER CH Comment: Interpretive Data Percent cell count reference ranges are not reported, since discordance with absolute values may lead to misinterpretation of CBC data. Current Interpretive Data was last revised on 2018. Testing performed by: [facility] [place] [address] Monocyte pct 9.3 % [facility] Comment: Interpretive Data Percent cell count reference ranges are not reported, since discordance with absolute values may lead to misinterpretation of CBC data. Current Interpretive Data was last revised on 2018. Testing performed by: [facility] [place] [address] Eosinophil pct 2.7 % [facility] Comment: Interpretive Data Percent cell count reference ranges are not reported, since discordance with absolute values may lead to misinterpretation of CBC data. Current Interpretive Data was last revised on 2018. Testing performed by: [facility] [place] [address] Basophil pct 0.9 % [facility] Comment: Interpretive Data Percent cell count reference ranges are not reported, since discordance with absolute values may lead to misinterpretation of CBC data. Current Interpretive Data was last revised on 2018. Testing performed by: [facility] [place] [address] Blood 04/04/2025 7:47 AM CDT 04/04/2025 7:47 AM CDT Berto Samson MD LAB BLOOD ORDERABLES Otilia l Result [facility] [id number] Department of Laboratories [place], [place] [id number] * (ABNORMAL) Chromogranin A (04/04/2025 7:47 AM CDT) Chromogranin A 454(H) <93 ng/mL Elaine ref Lab Comment: Impaired renal or hepatic function or treatment with proton pump inhibitors may result in artifactual elevations of Chromogranin A. ADDITIONAL INFORMATION The testing method is a homogeneous time-resolved immunofluorescent assay manufactured by [employer] and performed on the Kapture Kryptor Compact Plus. Values obtained with different assay methods or kits may be different and cannot be used interchangeably. Test results cannot be interpreted as absolute evidence for the presence or absence of malignant disease. In some immunoassays, the presence of unusually high concentrations of analyte may result in a high-dose hook effect. This may result in a lower or even normal measured analyte concentration. If the reported result is inconsistent with the clinical presentation, the laboratory should be alerted for troubleshooting. For diagnostic purposes, these immunoassay results should always be assessed in conjunction with the patients medical history, clinical examination and other findings. Test Performed by: [facility] [address] [place] [address] S[employer] B[employer] Architect: Becka Jules Ph.D.; CLIA# [id number] Blood 04/04/2025 7:47 AM CDT 04/04/2025 10:25 AM CDT Berto Samson MD LAB BLOOD ORDERABLES Otilia long Result [facility] [id number] Department [place] [address] Elaine ref Lab * CBC with auto differential (04/04/2025 7:47 AM CDT) WBC 5.59 3.80 - 9.90 K/cumm Comment:Testing performed by : [facility] [place] [address] Hgb 14.0 11.9 - 15.5 g/dL JESICA SANABRIA Comment:Testing performed by : [facility] [place] [address] Hct 41.8 35.6 - 45.5 % JESICA SANABRIA Comment:Testing performed by : [facility] [place] [address] Plt 151 150 - 400 K/cumm JESICA SANABRIA Comment:Testing performed by : [facility] [place] [address] MPV 9.8 9.1 - 12.3 fL JESICA SANABRIA Comment:Testing performed by : [facility] [place] [address] RBC 4.79 3.90 - 5.20 M/cumm JESICA Comment:Testing performed by : [facility] [place] [address] MCV 87.3 81.3 - 96.4 fL JESICA CH Comment:Testing performed by : [facility] [place] [address] MCH 29.2 27.1 - 33.3 pg JESICA CH Comment:Testing performed by : [facility] [place] [address] MCHC 33.5 32.3 - 35.7 g/dL JESICA CH Comment:Testing performed by : [facility] [place] [address] RDW CV 14.8 11.1 - 14.9 % JESICA CH Comment:Testing performed by : [facility] [place] [address] RDW SD 47.5 35.7 - 48.1 fL JESICA CH Comment:Testing performed by : [facility] [place] [address] NRBC abs 0.00 0.00 - 0.01 K/cumm JESICA Comment:Testing performed by : [facility] [place] [address] ANC Prelim 3.07 1.50 - 6.50 K/cumm JESICA Comment: Interpretive Data The rapid ANC is a preliminary automated count and may vary from the final ANC (Neut Abs) reported in the WBC differential that follows. Current interpretive data was last revised 2025. Testing performed by: [facility] [place] [address] Blood 04/04/2025 7:47 AM CDT 04/04/2025 7:47 AM CDT us Berto Samson MD LAB BLOOD ORDERABLES Otilia long Result [facility] [address] Department [place] [address] * (ABNORMAL) Serotonin serum (04/04/2025 7:47 AM CDT) Serotonin 1550(H) <=230 ng/mL [facility] ref Lab Comment: ADDITIONAL INFORMATION This test was developed and its performance characteristics determined by [facility] in a manner consistent with CLIA requirements. This test has not been cleared or approved by the U.S. Food and Drug Administration. Test Performed by: [facility] [address] [place] [address] Sap Basis Architect: Becka Jules Ph.D.; CLIA# [id number] Blood 04/04/2025 7:47 AM CDT 04/04/2025 10:26 AM CDT Berto Samson MD LAB BLOOD ORDERABLES Otilia l Result [facility] [address] Department [place] [address] Elaine ref Lab * (ABNORMAL) Comprehensive metabolic panel (04/04/2025 7:47 AM CDT) Sodium 141 135 - 145 mmol/L Comment:Testing performed by : [facility] [place] [address] Potassium, pl 4.5 3.3 - 4.9 mmol/L CERNER CH Comment:Testing performed by : [facility] [place] [address] Chloride 104 97 - 110 mmol/L CERNER CH Comment:Testing performed by : [facility] [place] [address] CO2 27 22 - 32 mmol/L CERNER CH Comment:Testing performed by : [facility] [place] [address] Anion gap 10 2 - 15 mmol/L CERNER CH Comment:Testing performed by : [facility] [place] [address] BUN 22 6 - 25 mg/dL CERNER CH Comment:Testing performed by : [facility] [place] [address] Creatinine 0.77 0.60 - 1.10 mg/dL CERNER CH Comment:Testing performed by : [facility] [place] [address] Glucose 131 70 - 199 mg/dL CERNER CH Comment: Interpretive Data Fasting glucose >/= 126 mg/dl is diagnostic for diabetes. Fasting is defined as no caloric intake for at least 8 hours. Fasting glucose between 100 mg/dl to 125 mg/dl is diagnostic of prediabetes. In a patient with classic symptoms of hyperglycemia or hyperglycemic crisis, a random glucose >/= 200 mg/dl is diagnostic for diabetes. In the absence of unequivocal hyperglycemia, results should be confirmed by repeat testing. The classification and Diagnosis of Diabetes Diabetes Care 2021; 46: S19-S40. Current interpretive data was last revised 2022. Testing performed by: [facility] [place] [address] Calcium 9.2 8.5 - 10.3 mg/dL CERNER CH Comment:Testing performed by : [facility] [place] [address] Bilirubin, total 0.7 0.1 - 1.2 mg/dL CERNER CH Comment:Testing performed by : [facility] [place] [address] Protein, pl 6.5 6.5 - 8.5 g/dL CERNER CH Comment:Testing performed by : [facility] [place] [address] Albumin 4.3 3.5 - 5.0 g/dL CERNER CH Comment:Testing performed by : [facility] [place] [address] Alk phos 198(H) 40 - 130 Units/L CERNER CH Comment:Testing performed by : [facility] [place] [address] ALT 22 7 - 45 Units/L CERNER CH Comment:Testing performed by : [facility] [place] [address] AST 24 10 - 45 Units/L CERNER CH Comment:Testing performed by : [facility] [place] [address] Blood 04/04/2025 7:47 AM CDT 04/04/2025 7:47 AM CDT us Nikolaos Trikalinos MD LAB BLOOD ORDERABLES Otilia l Result [facility] [address] [address] * eGFR (03/07/2025 7:42 AM CDT) eGFR >90 >=60 mL/min/1. 73 m2 Comment: Interpretive Data Reference Interval Normal >/= 90 mL/min/1.73m2 Mildly decreased* 60 - 89 mL/min/1.73m2 Mildly to moderately decreased 45 - 59 mL/min/1.73m2 Moderately to severely decreased 30 - 44 mL/min/1.73m2 Severely decreased 15 - 29 mL/min/1.73m2 Kidney Failure < 15 mL/min/1.73m2 *Relative to young adult level Estimated glomerular filtration rate is determined by the 2020 CKD-EPI equation recommended by the National Kidney Foundation (A Unifying Approach to GFR Estimation: Recommendations of the NKF-ASK Task Force on Reassessing the Inclusion of Race in Diagnosing Kidney Disease, JASN 2020). The CKD-EPI equation should not be used for patients with unstable renal function and has not been validated in children and those over 70. Current interpretive data was last reviewed 2021. Testing performed by: [facility] [place] [address] Blood 03/07/2025 7:42 AM CDT 03/07/2025 7:42 AM CDT us Berto Samson MD LAB BLOOD ORDERABLES Otilia l Result SKYLERJORDIN [place] [address] [place] [address] * Differential, auto (03/07/2025 7:42 AM CDT) Neutrophil abs 3.39 1.50 - 6.50 K/cumm Comment:Testing performed by : [facility] [place] [address] Imm gran abs 0.01 0.00 - 0.10 K/cumm CERNER CH Comment:Testing performed by : [facility] [place] [address] Lymphocyte abs 1.39 0.80 - 3.30 K/cumm CERNER CH Comment:Testing performed by : [facility] [place] [address] Monocyte abs 0.38 0.20 - 0.80 K/cumm CERNER CH Comment:Testing performed by : [facility] [place] [address] Eosinophil abs 0.13 0.00 - 0.50 K/cumm CERNER CH Comment:Testing performed by : [facility] [place] [address] Basophil abs 0.04 0.00 - 0.10 K/cumm CERNER CH Comment:Testing performed by : [facility] [place] [address] Neutrophil pct 63.6 % CERNER CH Comment: Interpretive Data Percent cell count reference ranges are not reported, since discordance with absolute values may lead to misinterpretation of CBC data. Current Interpretive Data was last revised on 2018. Testing performed by: [facility] [place] [address] Imm gran pct 0.2 % CERNER CH Comment: Interpretive Data Percent cell count reference ranges are not reported, since discordance with absolute values may lead to misinterpretation of CBC data. Current Interpretive Data was last revised on 2018. Testing performed by: [facility] [place] [address] Lymphocyte pct 26.0 % CERNER CH Comment: Interpretive Data Percent cell count reference ranges are not reported, since discordance with absolute values may lead to misinterpretation of CBC data. Current Interpretive Data was last revised on 2018. Testing performed by: [facility] [place] [address] Monocyte pct 7.1 % CERNER CH Comment: Interpretive Data Percent cell count reference ranges are not reported, since discordance with absolute values may lead to misinterpretation of CBC data. Current Interpretive Data was last revised on 2018. Testing performed by: [facility] [place] [address] Eosinophil pct 2.4 % CERNER CH Comment: Interpretive Data Percent cell count reference ranges are not reported, since discordance with absolute values may lead to misinterpretation of CBC data. Current Interpretive Data was last revised on 2018. Testing performed by: [facility], [place] [address] Basophil pct 0.7 % JESICA SANABRIA Comment: Interpretive Data Percent cell count reference ranges are not reported, since discordance with absolute values may lead to misinterpretation of CBC data. Current Interpretive Data was last revised on 2018. Testing performed by: [facility] [place] [address] Blood 03/07/2025 7:42 AM CDT 03/07/2025 7:42 AM CDT us Berto Samson MD LAB BLOOD ORDERABLES Otilia l Result [facility] [place] [address] Department [place] [address] * (ABNORMAL) Chromogranin A (03/07/2025 7:42 AM CDT) Chromogranin A 345(H) <93 ng/mL Elaine ref Lab Comment: Impaired renal or hepatic function or treatment with proton pump inhibitors may result in artifactual elevations of Chromogranin A. ADDITIONAL INFORMATION The testing method is a homogeneous time-resolved immunofluorescent assay manufactured by [employer] and performed on the [employer]apt[employer] Kryptor Compact Plus. Values obtained with different assay methods or kits may be different and cannot be used interchangeably. Test results cannot be interpreted as absolute evidence for the presence or absence of malignant disease. In some immunoassays, the presence of unusually high concentrations of analyte may result in a high-dose hook effect. This may result in a lower or even normal measured analyte concentration. If the reported result is inconsistent with the clinical presentation, the laboratory should be alerted for troubleshooting. For diagnostic purposes, these immunoassay results should always be assessed in conjunction with the patients medical history, clinical examination and other findings. Test Performed by: [facility] [address] [place] [address] S[employer] Basis Architect: Becka Jules Ph.D.; CLIA# [id number] Blood 03/07/2025 7:42 AM CDT 03/07/2025 12:12 PM CDT us Berto Samson MD LAB BLOOD ORDERABLES Otilia ethan Result [facility] [address] Department [place] [address] Elaine ref Lab * (ABNORMAL) CBC with auto differential (03/07/2025 7:42 AM CDT) WBC 5.34 3.80 - 9.90 K/cumm Comment:Testing performed by : [facility] [place] [address] Hgb 13.2 11.9 - 15.5 g/dL CERNER CH Comment:Testing performed by : [facility] [place] [address] Hct 40.2 35.6 - 45.5 % CERNER CH Comment:Testing performed by : [facility] [place] [address] Plt 157 150 - 400 K/cumm CERNER CH Comment:Testing performed by : [facility] [place] [address] MPV 9.7 9.1 - 12.3 fL CERNER CH Comment:Testing performed by : [facility] [place] [address] RBC 4.65 3.90 - 5.20 M/cumm CERNER CH Comment:Testing performed by : [facility] [place] [address] MCV 86.5 81.3 - 96.4 fL CERNER CH Comment:Testing performed by : [facility] [place] [address] MCH 28.4 27.1 - 33.3 pg CERNER CH Comment:Testing performed by : [facility] [place] [address] MCHC 32.8 32.3 - 35.7 g/dL JESICA SANABRIA Comment:Testing performed by : [facility] [place] [address] RDW CV 15.2(H) 11.1 - 14.9 % JESICA SANABRIA Comment:Testing performed by : [facility] [place] [address] RDW SD 48.5(H) 35.7 - 48.1 fL JESICA Comment:Testing performed by : [facility] [place] [address] NRBC abs 0.00 0.00 - 0.01 K/cumm JESICA Comment:Testing performed by : [facility] [place] [address] ANC Prelim 3.39 1.50 - 6.50 K/cumm JESICA Comment: Interpretive Data The rapid ANC is a preliminary automated count and may vary from the final ANC (Neut Abs) reported in the WBC differential that follows. Current interpretive data was last revised 2025. Testing performed by: [facility] [place] [address] Blood 03/07/2025 7:42 AM CDT 03/07/2025 7:42 AM CDT Berto Samson MD LAB BLOOD ORDERABLES Otilia long Result [facility] [address] [facility] Department of Laboratories [place], [place] [id number] * (ABNORMAL) Serotonin serum (03/07/2025 7:42 AM CDT) Serotonin 1300(H) <=230 ng/mL [facility] Lab Comment: ADDITIONAL INFORMATION This test was developed and its performance characteristics determined by [facility] in a manner consistent with CLIA requirements. This test has not been cleared or approved by the U.S. Food and Drug Administration. Test Performed by: [facility] - [address] [address] Sap Basis Architect: Becka Jules Ph.D.; CLIA# [id number] Blood 03/07/2025 7:42 AM CDT 03/07/2025 12:21 PM CDT us Berto Samson MD LAB BLOOD ORDERABLES Otilia long Result [facility] [address] Department [place] [address] Elaine ref Lab * (ABNORMAL) Comprehensive metabolic panel (03/07/2025 7:42 AM CDT) Sodium 140 135 - 145 mmol/L Comment:Testing performed by : [facility] [place] [address] Potassium, pl 4.2 3.3 - 4.9 mmol/L [facility] Comment:Testing performed by : [facility] [place] [address] Chloride 102 97 - 110 mmol/L [facility] Comment:Testing performed by : [facility] [place] [address] CO2 27 22 - 32 mmol/L [facility] Comment:Testing performed by : [facility] [place] [address] Anion gap 11 2 - 15 mmol/L [facility] Comment:Testing performed by : [facility] [place] [address] BUN 17 6 - 25 mg/dL [facility] Comment:Testing performed by : [facility] [place] [address] Creatinine 0.64 0.60 - 1.10 mg/dL [facility] Comment:Testing performed by : [facility] [place] [address] Glucose 153 70 - 199 mg/dL [facility] Comment: Interpretive Data Fasting glucose >/= 126 mg/dl is diagnostic for diabetes. Fasting is defined as no caloric intake for at least 8 hours. Fasting glucose between 100 mg/dl to 125 mg/dl is diagnostic of prediabetes. In a patient with classic symptoms of hyperglycemia or hyperglycemic crisis, a random glucose >/= 200 mg/dl is diagnostic for diabetes. In the absence of unequivocal hyperglycemia, results should be confirmed by repeat testing. The classification and Diagnosis of Diabetes Diabetes Care 2021; 46: S19-S40. Current interpretive data was last revised 2022. Testing performed by: [facility] [place] [address] Calcium 9.2 8.5 - 10.3 mg/dL CERNER CH Comment:Testing performed by : [facility] [place] [address] Bilirubin, total 0.6 0.1 - 1.2 mg/dL CERNER CH Comment:Testing performed by : [facility] [place] [address] Protein, pl 6.8 6.5 - 8.5 g/dL CERNER CH Comment:Testing performed by : [facility] [place] [address] Albumin 4.1 3.5 - 5.0 g/dL CERNER CH Comment:Testing performed by : [facility] [place] [address] Alk phos 189(H) 40 - 130 Units/L CERNER CH Comment:Testing performed by : [facility] [place] [address] ALT 20 7 - 45 Units/L CERNER CH Comment:Testing performed by : [facility] [place] [address] AST 28 10 - 45 Units/L CERNER CH Comment:Testing performed by : [facility] [place] [address] Blood 03/07/2025 7:42 AM CDT 03/07/2025 7:42 AM CDT us Berto Samson MD LAB BLOOD ORDERABLES Otilia long Result [facility] [address] Department [place] [address] * eGFR (02/07/2025 10:20 AM CDT) eGFR >90 >=60 mL/min/1. 73 m2 Comment: Interpretive Data Reference Interval Normal >/= 90 mL/min/1.73m2 Mildly decreased* 60 - 89 mL/min/1.73m2 Mildly to moderately decreased 45 - 59 mL/min/1.73m2 Moderately to severely decreased 30 - 44 mL/min/1.73m2 Severely decreased 15 - 29 mL/min/1.73m2 Kidney Failure < 15 mL/min/1.73m2 *Relative to young adult level Estimated glomerular filtration rate is determined by the 2020 CKD-EPI equation recommended by the National Kidney Foundation (A Unifying Approach to GFR Estimation: Recommendations of the NKF-ASK Task Force on Reassessing the Inclusion of Race in Diagnosing Kidney Disease, JASN 2020). The CKD-EPI equation should not be used for patients with unstable renal function and has not been validated in children and those over 70. Current interpretive data was last reviewed 2021. Testing performed by: [facility] [place] [address] Blood 02/07/2025 10:2 0 AM CDT 02/07/2025 10:20 AM CDT us Berto Samson MD LAB BLOOD ORDERABLES Otilia l Result [facility] [address] Department [place] [address] * Differential, auto (02/07/2025 10:20 AM CDT) Neutrophil abs 3.8 1.5 - 6.5 K/cumm Comment:Testing performed by : [facility] [place] [address] Imm gran abs 0.0 0.0 - 0.1 K/cumm JESICA Comment:Testing performed by : [facility] [place] [address] Lymphocyte abs 1.5 0.8 - 3.3 K/cumm JESICA Comment:Testing performed by : [facility] [place] [address] Monocyte abs 0.4 0.2 - 0.8 K/cumm JESICA Comment:Testing performed by : [facility] [place] [address] Eosinophil abs 0.2 0.0 - 0.5 K/cumm CERNER CH Comment:Testing performed by : [facility] [place] [address] Basophil abs 0.1 0.0 - 0.1 K/cumm CERNER CH Comment:Testing performed by : [facility] [place] [address] Neutrophil pct 62.9 % CERNER CH Comment: Interpretive Data Percent cell count reference ranges are not reported, since discordance with absolute values may lead to misinterpretation of CBC data. Current Interpretive Data was last revised on 2018. Testing performed by: [facility] [place] [address] Imm gran pct 0.3 % CERNER CH Comment: Interpretive Data Percent cell count reference ranges are not reported, since discordance with absolute values may lead to misinterpretation of CBC data. Current Interpretive Data was last revised on 2018. Testing performed by: [facility] [place] [address] Lymphocyte pct 24.8 % CERNER CH Comment: Interpretive Data Percent cell count reference ranges are not reported, since discordance with absolute values may lead to misinterpretation of CBC data. Current Interpretive Data was last revised on 2018. Testing performed by: [facility] [place] [address] Monocyte pct 7.1 % CERNER CH Comment: Interpretive Data Percent cell count reference ranges are not reported, since discordance with absolute values may lead to misinterpretation of CBC data. Current Interpretive Data was last revised on 2018. Testing performed by: [facility] [place] [address] Eosinophil pct 3.6 % CERNER CH Comment: Interpretive Data Percent cell count reference ranges are not reported, since discordance with absolute values may lead to misinterpretation of CBC data. Current Interpretive Data was last revised on 2018. Testing performed by: [facility] [place] [address] Basophil pct 1.3 % CERNER CH Comment: Interpretive Data Percent cell count reference ranges are not reported, since discordance with absolute values may lead to misinterpretation of CBC data. Current Interpretive Data was last revised on 2018. Testing performed by: [facility], [place] [address] Blood 02/07/2025 10:2 0 AM CDT 02/07/2025 10:20 AM CDT us Berto Samson MD LAB BLOOD ORDERABLES Otilia l Result Performing Organization Address City/[facility]/ZIP Co de Phone Number JESICA SANABRIA [address] Department [place] [address] * (ABNORMAL) Chromogranin A (02/07/2025 10:20 AM CDT) Chromogranin A 303(H) <93 ng/mL [facility] Comment: Impaired renal or hepatic function or treatment with proton pump inhibitors may result in artifactual elevations of Chromogranin A. ADDITIONAL INFORMATION The testing method is a homogeneous time-resolved immunofluorescent assay manufactured by [employer] and performed on the Kapture Kryptor Compact Plus. Values obtained with different assay methods or kits may be different and cannot be used interchangeably. Test results cannot be interpreted as absolute evidence for the presence or absence of malignant disease. In some immunoassays, the presence of unusually high concentrations of analyte may result in a high-dose hook effect. This may result in a lower or even normal measured analyte concentration. If the reported result is inconsistent with the clinical presentation, the laboratory should be alerted for troubleshooting. For diagnostic purposes, these immunoassay results should always be assessed in conjunction with the patients medical history, clinical examination and other findings. Test Performed by: [facility] - [address] [address] Sap Basis Architect: Becka Jules Ph.D.; CLIA# [id number] Blood 02/07/2025 10:2 0 AM CDT 02/07/2025 12:16 PM CDT Berto Samson MD LAB BLOOD ORDERABLES Otilia l Result JESICA [address] Department [place] [address] Elaine ref Lab * (ABNORMAL) CBC with auto differential (02/07/2025 10:20 AM CDT) WBC 6.1 3.8 - 9.9 K/cumm Comment:Testing performed by : [facility] [place] [address] Hgb 12.9 11.9 - 15.5 g/dL CERNER CH Comment:Testing performed by : [facility] [place] [address] Hct 41.2 35.6 - 45.5 % CERNER CH Comment:Testing performed by : [facility] [place] [address] Plt 185 150 - 400 K/cumm CERNER CH Comment:Testing performed by : [facility] [place] [address] MPV 9.7 9.1 - 12.3 fL CERNER CH Comment:Testing performed by : [facility] [place] [address] RBC 4.71 3.90 - 5.20 M/cumm CERNER CH Comment:Testing performed by : [facility] [place] [address] MCV 87.5 81.3 - 96.4 fL CERNER CH Comment:Testing performed by : [facility] [place] [address] MCH 27.4 27.1 - 33.3 pg CERNER CH Comment:Testing performed by : [facility] [place] [address] MCHC 31.3(L) 32.3 - 35.7 g/dL CERNER CH Comment:Testing performed by : [facility] [place] [address] RDW CV 15.3(H) 11.1 - 14.9 % CERNER CH Comment:Testing performed by : [facility] [place] [address] RDW SD 48.8(H) 35.7 - 48.1 fL CERNER CH Comment:Testing performed by : [facility] [place] [address] NRBC abs 0.00 0.00 - 0.01 K/cumm JESICA Comment:Testing performed by : [facility] [place] [address] Blood 02/07/2025 10:2 0 AM CDT 02/07/2025 10:20 AM CDT Berto Samson MD LAB BLOOD ORDERABLES Otilia l Result Performing Organization Address City/[facility] Co de Phone Number JESICA [address] [place] [address] * TSH (02/07/2025 10:20 AM CDT) Thyroid Stimulating Hormone 1.85 0.30 - 4.20 mcIUnit/mL Blood 02/07/2025 10:2 0 AM CDT 02/07/2025 11:02 AM CDT Micaela Ren MD LAB BLOOD ORDERABLES Final Result Performing Organization Address [facility] Co de Phone Number SKYLERJORDIN [address] [place] [address] * T4, free (02/07/2025 10:20 AM CDT) Free T4 1.57 0.90 - 1.70 ng/dL Blood 02/07/2025 10:2 0 AM CDT 02/07/2025 11:02 AM CDT Micaela Ren MD LAB BLOOD ORDERABLES Final Result Performing Organization Address [facility] Co de Phone Number [facility] [address] Department [employer] [place], [place] [id number] * (ABNORMAL) Serotonin serum (02/07/2025 10:20 AM CDT) Serotonin 1200(H) <=230 ng/mL [facility] ref Lab Comment: ADDITIONAL INFORMATION This test was developed and its performance characteristics determined by [facility] in a manner consistent with CLIA requirements. This test has not been cleared or approved by the U.S. Food and Drug Administration. Test Performed by: [facility] [address] [place] [address] Sap Basis Architect: Becka Jules Ph.D.; CLIA# [id number] Blood 02/07/2025 10:2 0 AM CDT 02/07/2025 12:17 PM CDT us Berto Samson MD LAB BLOOD ORDERABLES Otilia long Result JESICA [address] Department [place] [address] Elaine ref Lab * (ABNORMAL) Comprehensive metabolic panel (02/07/2025 10:20 AM CDT) Sodium 140 135 - 145 mmol/L Comment:Testing performed by : [facility] [place] [address] Potassium, pl 4.4 3.3 - 4.9 mmol/L CERNER CH Comment:Testing performed by : [facility] [place] [address] Chloride 103 97 - 110 mmol/L CERNER CH Comment:Testing performed by : [facility] [place] [address] CO2 27 22 - 32 mmol/L CERNER CH Comment:Testing performed by : [facility] [place] [address] Anion gap 10 2 - 15 mmol/L CERNER CH Comment:Testing performed by : [facility] [place] [id number] BUN 16 6 - 25 mg/dL CERNER CH Comment:Testing performed by : [facility] [place] [address] Creatinine 0.70 0.60 - 1.10 mg/dL CERNER CH Comment:Testing performed by : [facility] [place] [address] Glucose 146 70 - 199 mg/dL CERNER CH Comment: Interpretive Data Fasting glucose >/= 126 mg/dl is diagnostic for diabetes. Fasting is defined as no caloric intake for at least 8 hours. Fasting glucose between 100 mg/dl to 125 mg/dl is diagnostic of prediabetes. In a patient with classic symptoms of hyperglycemia or hyperglycemic crisis, a random glucose >/= 200 mg/dl is diagnostic for diabetes. In the absence of unequivocal hyperglycemia, results should be confirmed by repeat testing. The classification and Diagnosis of Diabetes Diabetes Care 2021; 46: S19-S40. Current interpretive data was last revised 2022. Testing performed by: [facility] [place] [address] Calcium 9.9 8.5 - 10.3 mg/dL CERNER CH Comment:Testing performed by : [facility] [place] [address] Bilirubin, total 0.7 0.1 - 1.2 mg/dL CERNER CH Comment:Testing performed by : [facility] [place] [address] Protein, pl 7.4 6.5 - 8.5 g/dL CERNER CH Comment:Testing performed by : [facility] [place] [address] Albumin 4.4 3.5 - 5.0 g/dL CERNER CH Comment:Testing performed by : [facility] [place] [address] Alk phos 264(H) 40 - 130 Units/L CERNER CH Comment:Testing performed by : [facility] [place] [address] ALT 15 7 - 45 Units/L CERNER CH Comment:Testing performed by : [facility] [place] [address] AST 24 10 - 45 Units/L CERNER CH Comment:Testing performed by : [facility] [place] [address] Blood 02/07/2025 10:2 0 AM CDT 02/07/2025 10:20 AM CDT Berto Samson MD LAB BLOOD ORDERABLES Otilia long Result JESICA [address] [facility] Department [place] [address] * Colonoscopy (11/11/2024 11:18 AM 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 Procedure Date: 11/11/2024 Procedure: Colonoscopy Indications: High risk colon cancer surveillance: Personalhistory of colonic polyps, Family history of colon cancerin a first-degree relative before age 60 years, Last colonoscopy: October 2021 Providers: Bryan Anderson M.D., WILLAM Starr (Anesthesia Staff), Magi Solano RN, Martha Ann, Packaging Inspector Referring MD: Micaela Ren M.D. Medicines: Monitored Anesthesia Care Complications: No immediate complications. Estimated Blood Loss: Estimated blood loss was minimal. Procedure: Pre-Anesthesia Assessment: - Prior to the procedure, a History and Physicalwas performed, and patient medications and allergieswere reviewed. The patient is competent. The risks and benefits of the procedure and the sedation optionsand risks were discussed with the patient. Allquestions were answered and informed consent was obtained. Patient identification and proposed procedure were verified by the physician, the nurse and the hollock maker in the procedure room. Mental Status Examination: alert and oriented. AirwayExamination: normal oropharyngeal airway and neck mobility. Respiratory Examination: clear to auscultation. CV Examination: normal. Prophylactic Antibiotics: The patient does not require prophylactic antibiotics. Prior Anticoagulants: The patient has taken no anticoagulant or antiplatelet agents. ASA Grade Assessment: III - A patient with severe systemic disease. After reviewing the risks and benefits,the patient was deemed in satisfactory condition to undergo the procedure. The anesthesia plan was touse monitored anesthesia care (MAC). Immediately priorto administration of medications, the patient was re-assessed for adequacy to receive sedatives. The heart rate, respiratory rate, oxygen saturations, blood pressure, adequacy of pulmonary ventilation,and response to care were monitored throughout the procedure. The physical status of the patient was re-assessed after the procedure. - The risks and benefits of the procedure and the sedation options and risks were discussed with the patient. All questions were answered and informed consent was obtained. After I obtained informed consent, the scope was passed under direct vision. Throughout theprocedure, the patient's blood pressure, pulse, and oxygen saturations were monitored continuously. The scopewas passed under direct vision. The Colonoscope was introduced through the anus and advanced to the the cecum, identified by appendiceal orifice andileocecal valve. The colonoscopy was performed without difficulty. The patient tolerated the procedurewell. The quality of the bowel preparation was adequate.The bowel preparation used was SUPREP via split dose instruction. Findings: Two flat polyps were found in the ileocecal valve. The polyps were 7to 8 mm in size. These polyps were removed with a jumbo cold forceps. Resection and retrieval were complete. Estimated blood loss wasminimal. A 5 mm polyp was found in the ascending colon. The polyp was sessile. The polyp was removed with a jumbo cold forceps. Resection andretrieval were complete. Estimated blood loss was minimal. A 7 mm polyp was found in the ascending colon. The polyp was sessile. The polyp was removed with a jumbo cold forceps. Resection andretrieval were complete. Estimated blood loss was minimal. A 6 mm polyp was found in the ascending colon. The polyp was semi-pedunculated. The polyp was removed with a jumbo cold forceps. Resection and retrieval were complete. Estimated blood loss wasminimal. A 10 mm polyp was found in the transverse colon. The polyp wassessile. The polyp was removed with a hot snare. Resection and retrieval were complete. Estimated blood loss was minimal. Three sessile polyps were found in the transverse colon. The polypswere 6 to 7 mm in size. These polyps were removed with a jumbo coldforceps. Resection and retrieval were complete. Estimated blood loss wasminimal. The exam was otherwise without abnormality on direct and retroflexion views. Impression: - Two 7 to 8 mm polyps at the ileocecal valve,removed with a jumbo cold forceps. Resected andretrieved. - One 5 mm polyp in the ascending colon, removedwith a jumbo cold forceps. Resected and retrieved. - One 7 mm polyp in the ascending colon, removedwith a jumbo cold forceps. Resected and retrieved. - One 6 mm polyp in the ascending colon, removedwith a jumbo cold forceps. Resected and retrieved. - One 10 mm polyp in the transverse colon, removed with a hot snare. Resected and retrieved. - Three 6 to 7 mm polyps in the transverse colon, removed with a jumbo cold forceps. Resected and retrieved. - The examination was otherwise normal on directand retroflexion views. Recommendation: - Await pathology results. - Repeat colonoscopy in 3 years for surveillance. Procedure Code(s): --- Professional --- 58778, Colonoscopy, flexible; with removal of tumor(s), polyp(s), or other lesion(s) by snare technique 49485, 59, Colonoscopy, flexible; with biopsy,single or multiple Diagnosis Code(s): --- Professional --- Z86.010, Personal history of colonic polyps D12.0, Benign neoplasm of cecum D12.3, Benign neoplasm of transverse colon (hepatic flexure or splenic flexure) D12.2, Benign neoplasm of ascending colon Z80.0, Family history of malignant neoplasm of digestive organs CPT copyright 2020 [employer]. All rights reserved. The codes documented in this report are preliminary and upon data coder operator reviewmay be revised to meet current compliance requirements. Electronically signed by Bryan Anderson M.D. Bryan Anderson M.D. 11/11/2024 12:22:18 PM Number of Addenda: 0 Note Initiated On: 11/11/2024 11:18 AM us Bryan Anderson MD ENDOSCOPY PROCEDURES Ed ited Result - Final * DIABETES EYE EXAM (11/09/2024 3:31 PM DENTAL ASSISTANT INSTRUCTOR) us Generic External Data Provider HEALTH MAINTENANC E Final Result * Albumin Creatinine Ratio, Urine (09/20/2024 10:58 AM CDT) Albumin Ur <12.0 mg/L Comment: Interpretive Data No reference range established. Current interpretive data was last revised 2019. Creatinine Ur 15.0 mg/dL JESICA SANABRIA Comment: Interpretive Data No reference range established. Current interpretive data was last revised 2019. Albumin Creatinine Ratio, Ur See Comment 1 - 29 JESICA SANABRIA Comment:Unable to calculate Urine 09/20/2024 10:5 8 AM CDT 09/20/2024 11:50 AM CDT us Micaela Ren MD LAB URINE ORDERABLES Final Result JESICA SANABRIA [address] Department [place] [address] * (ABNORMAL) Hemoglobin A1c (09/20/2024 10:15 AM CDT) Hgb A1C 5.8(H) 4.0 - 5.6 % Estimated Average Glucose 120 mg/dL JESICA SANABRIA Comment: The ADA recommends reporting an estimated Average Glucose (eAG) with all Hemoglobin A1c results using the equation derived from a study of 507 normal and diabetic adults. Minority populations were underrepresented and children were not included. (Diabetes Care 31:3243-6752, 2008). The eAG is not equivalent to a fasting glucose. Blood 09/20/2024 10:1 5 AM CDT 09/20/2024 10:52 AM CDT us Micaela Ren MD LAB BLOOD ORDERABLES Final Result JESICA SANABRIA [address] [place] [address] * Screening Mammogram Bilateral W Damon (09/14/2024 10:03 AM CDT) Anatomical Region Laterality Modality Breast Bilateral Mammography 09/14/2024 11:3 6 AM CDT Impressions 09/14/2024 11:36 AM CDT There is no mammographic evidence of malignancy. A 1 year screening mammogram is recommended. BI-RADS: 1 - Negative. The patient has been or will be contacted. The patient will be entered into a reminder system with a target due date of 1 year for her next mammogram. Electronically signed by: Ursula Nova M.D. Narrative 09/14/2024 11:36 AM CDT EXAMINATION: SCREENING MAMMOGRAM BILATERAL W DAMON ORDERING HEALTHCARE PROVIDER: MICAELA REN HISTORY: Routine screening mammography. COMPARISON: 08/27/2023, 07/08/2022, 07/06/2021, 06/30/2020 TECHNIQUE: CC and MLO views of the bilateral breasts were obtained with digital technique using breast tomosynthesis with C view. Computer aided detection was utilized. FINDINGS: DENSITY: The breasts are heterogeneously dense, which may obscure small masses. BREASTS: There are no suspicious masses, suspicious calcifications, or other suspicious findings in either breast. There has been no suspicious interval change. us Micaela Ren MD IMG MAMMO PROCEDURES Final Result * Lipid panel (03/12/2024 7:59 AM CDT) Cholesterol 144 30 - 199 mg/dL Comment: Interpretive Data Ages < or = 19 years Acceptable: <170 mg/dL Borderline high: 170-199 mg/dL High: >or= 200 mg/dL Ages > or = 20 years Desirable: <200 mg/dL Borderline high: 200-239 mg/dL High: >or= 240 mg/dL Literature References: 1. Expert Panel on Integrated Guidelines for Cardiovascular Health and Risk Reduction in Children and Adolescents. Pediatrics 2011;128:S213 2. NCEP Expert Panel. Circulation 2004;110:227 Current Interpretive Data was last revised on 2018. Testing performed by: [facility], [address] [place] [address]., [address] Triglycerides 117 <=149 mg/dL JESICA SANABRIA Comment: Interpretive Data Ages < or = 9 years Acceptable: <75 mg/dL Borderline high: 75-99 mg/dL High: >or= 100 mg/dL Ages 10 to 20 years Acceptable: <90 mg/dL Borderline high: 90-129 mg/dL High: >or= 130 mg/dL Ages > or = 20 years Desirable: <150 mg/dL Borderline high: 150-199 mg/dL High: 200-499 mg/dL Very high: >or= 499 mg/dL Literature References: 1. Expert Panel on Integrated Guidelines for Cardiovascular Health and Risk Reduction in Children and Adolescents. Pediatrics 2011;128:S213 2. NCEP Expert Panel. Circulation 2004;110:227 Current Interpretive Data was last revised on 2018. Testing performed by: [facility], [address] [place] [address], [place]., [address] HDL 48 >=40 mg/dL JESICA SANABRIA Comment: Interpretive Data Ages < or = 19 years Acceptable: >45 mg/dL Borderline low: 40-45 mg/dL Low: <40 mg/dL Ages > or = 20 years Desirable: >or= 60 mg/dL Low: <40 mg/dL Literature References: 1. Expert Panel on Integrated Guidelines for Cardiovascular Health and Risk Reduction in Children and Adolescents. Pediatrics 2011;128:S213 2. NCEP Expert Panel. Circulation 2004;110:227 Current Interpretive Data was last revised on 2018. Testing performed by: [address] [address] LDL, calculated 73 <=129 mg/dL JESICA SANABRIA Comment: Interpretive Data Ages < or = 19 years Acceptable: <110 mg/dL Borderline high: 110-129 mg/dL High: >or= 130 mg/dL Ages > or = 20 years Optimal: <100 mg/dL Near optimal: 100-129 mg/dL Borderline high: 130-159 mg/dL High: >160 mg/dL Literature References: 1. Expert Panel on Integrated Guidelines for Cardiovascular Health and Risk Reduction in Children and Adolescents. Pediatrics 2011;128:S213 2. NCEP Expert Panel. Circulation 2004;110:227 Current Interpretive Data was last revised on 2018. Testing performed by: [address] [address] Non-HDL Cholesterol 96 mg/dL JESICA Comment: Interpretive Data Ages < or = 19 years Acceptable: <120 mg/dL Borderline high: 120-144 mg/dL High: >145 mg/dL Ages > or = 20 years When triglycerides are >200 mg/dL, Non-HDL cholesterol is a secondary target of therapy with treatment goals that are 30 mg/dL greater than the LDL cholesterol target. Literature References: 1. Expert Panel on Integrated Guidelines for Cardiovascular Health and Risk Reduction in Children and Adolescents. Pediatrics 2011;128:S213 2. NCEP Expert Panel. Circulation 2003;110:227 Current Interpretive Data was last revised on 2018. Testing performed by: [address] [address] Chol/HDL ratio 3 JESICA Comment:Testing performed by : [address] [address] Blood 03/12/2024 7:59 AM CDT 03/12/2024 12:11 PM CDT Micaela Ren MD LAB BLOOD ORDERABLES Final Result JESICA SANABRIA [address] [facility] [place] [address] * Dexa Axial Skeleton Bone Density 1 or 2 Site (09/01/2023 11:41 AM CDT) Anatomical Region Laterality Modality Body N/A Other 09/01/2023 9:05 PM CDT Narrative 09/01/2023 9:05 PM CDT EXAM DESCRIPTION: DEXA AXIAL SKELETON BONE DENSITY 1 OR MORE SITES REASON FOR STUDY: 67 y/o year old F with given history of: Menopause Osteoporosis screening 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 LEFT HIP: Total BMD is 0.697 g/cm2 T-score is -2.0 Femoral neck BMD is 0.580 g/cm2 T-score is -2.4 FRAX: 10 year risk for a major osteoporotic fracture is 13 %, 10 year risk for a hip fracture is 3.0 % IMPRESSION: Low Bone Mass. REFERENCE: Bone mineral density: Normal (T-score above or = -1.0) Low bone mass (T-score between -1.0 and -2.5) replaces the previously used term osteopenia Osteoporosis (T-score = or below -2.5) Medical evaluation for secondary causes of low bone mineral density may be appropriate. FRAX is a World Health Organization validated fracture risk assessment tool that calculates a person's 10 year probability of a major osteoporosis related fracture and hip fracture. According to the National Osteoporosis Foundation guidelines, postmenopausal women and men age 50 or older with low bone mass and a 10 year probability of a major osteoporosis related fracture = or greater than 20% or a 10 year probability of a hip fracture = or greater than 3% should be considered for treatment. For further information, including treatment recommendations, please refer to the 2019 ISCD Official Positions (http://www.iscd.org) and the NOF's Clinician's Guide to Prevention and Treatment of Osteoporosis (http://www.nof.org/professionals/clinical-guidelines) THIS IS AN ELECTRONICALLY VERIFIED FINAL REPORT 09/01/2023 9:05 PM - Electronically signed by Darnell Harrison M.D. 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 LEFT HIP: Total BMD is 0.697 g/cm2 T-score is -2.0 Femoral neck BMD is 0.580 g/cm2 T-score is -2.4 FRAX: 10 year risk for a major osteoporotic fracture is 13 %, 10 year risk for ahip fracture is 3.0 % IMPRESSION: Low Bone Mass. REFERENCE: Bone mineral density: Normal (T-score above or = -1.0) Low bone mass (T-score between -1.0 and -2.5) replaces thepreviously used term osteopenia Osteoporosis (T-score = or below -2.5) Medical evaluation for secondary causes of low bone mineral density may be appropriate. FRAX is a World Health Organization validated fracture risk assessmenttool that calculates a person's 10 year probability of a major osteoporosisrelated fracture and hip fracture. According to the National OsteoporosisFoundation guidelines, postmenopausal women and men age 50 or older with low bonemass and a 10 year probability of a major osteoporosis related fracture = or greater than 20% or a 10 year probability of a hip fracture = or greaterthan 3% should be considered for treatment. For further information, including treatment recommendations, please referto the 2019 ISCD Official Positions (http://www.iscd.org) and the NOF's Clinician's Guide to Prevention and Treatment of Osteoporosis (http://www.nof.org/professionals/clinical-guidelines) THIS IS AN ELECTRONICALLY VERIFIED FINAL REPORT 09/01/2023 9:05 PM - Electronically signed by Darnell Harrison M.D. MF: [id number] Report ID: [id number] Reading Location: [place] [address] Micaela Ren MD IMG DXA PROCEDURES Final R esult * Hepatitis C antibody (08/29/2017 7:12 AM CDT) Hep C Ab Negative Negative JSEICA COWAN (JORDYN) Comment:Testing performed by : [facility], [address] [place] [address], [facility] Blood specimen (specimen) 08/29/2017 7:12 AM CDT 08/29/2017 12:16 PM CDT Micaela Ren MD LAB MICROBIOLOGY - GENERAL ORDERABLES Final Result JESICA CHAPO (JORDYN) 1 [facility] Department [place] [address] from Last 3 Months or Most Recently Relevant to Health Maintenance Insurance MEDICARE COMMERCIAL GENERIC MEDICARE [facility] CHOICE PLUS MEDICARE [facility] Advance Directives For more information, please contact: [phone] Documents on File Type Date Recorded Patient Society Editor Expl anation ADVANCE DIRECTIVE 05/12/2019 DNR ADVANCE DIRECTIVE 09/25/2015 POWER OF A [employer]TORNEY-[employer]ICAL * Full Code (Latest Code Status on File) Date Activated Date Inactivated Comments 12/30/2024 4:34 PM 12/31/2024 4:07 PM * Full Code Date Activated Date Inactivated Comments 12/30/2024 11:11 AM 12/30/2024 4:34 PM * Full Code Date Activated Date Inactivated Comments 11/30/2024 1:24 PM 12/01/2024 6:14 PM Care Teams Front Desk Lead Relationship Specialty Start Date End Date Micaela Ren MD PCP - General 02/28/17 Filiberto Orona MD [address] [facility] [address] RENZO Balderas [address] [place], [place] [id number] Surgeon Orthopedic Surgery 08/24/17 Blayne Christiansen MD [address] [facility] [address] AZEVEDO [address] [place] [address] Obstetrics and Gynecology 08/24/17 Lennox Tobin MD [address] [facility] [address] RENZO Balderas [address] [place] [address] General Surgery 08/24/17 Berto Samson MD [address] [facility] [address] [place] [address] Consulting Physician Internal Medicine 09/30/17 Lester Hendrix OD [address] [place] [place] [id number] Optometry 03/31/18 Bryan Anderson MD [address] [place] [address] Consulting Physician Gastroenterology 05/09/19 Baudilio Parish MD [address] [place] [address] Consulting Physician Endocrinology Diabetes & Metabolism 05/12/19 Zach Khoury MD [address] [place] [address] Consulting Physician Neurology 07/09/21 Anton Sauer MD [address] [facility] [phone] [place] [address] Consulting Physician General Surgery 07/05/22 Tejas Lazcano DC [address] [place] [address] [place] [address] Referring Physician Chiropractic Medicine 08/27/23 Vu Lindsay MD PhD [address] [place] [address] Consulting Physician Orthopedic Surgery 11/22/24
--- OUTSIDE RECORDS SUMMARY | 2025-04-28 16:49 | XMS_ITS | Encounter Summary ---
Author Organization [facility] Address [facility] [place] [address] Care Team Providers Care Instructional Facilitator Name Role Phone Micaela Mckay MD Primary Care Provider [phone] Filiberto Orona MD Unavailable Blayne Christiansen MD Unavailable Lennox Tobin MD Unavailable [phone] Berto Samson MD Unavailable Lester Hendrix OD Unavailable Bryan Anderson MD Unavailable Baudilio Parish MD Unavailable [phone] Zach Khoury MD Unavailable Anton Sauer MD Unavailable Tejas Lazcano DC Unavailable [phone] Vu Lindsay MD PhD Unavailable [phone] Reason for Visit * Reason Onset Date Comments fall04/28/2025 Encounter Details Date Type Department Care Team (Late st Contact Info) Description 04/28/2025 Telephone [facility] [address] [place] [address] Micaela Mckay MD [address] [place] [address] Fall Social History Tobacco Use Types Packs/Day Years [...] on file Legal 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 Gender Identity Not on file Sexual Orientation Not on file 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 Not on file Not on file documented as of this encounter Miscellaneous Notes * Telephone Encounter - Mihai Villatoro RN - 04/28/2025 4:26 PM CDT Spoke to pt et informed KMS out of office tomorrow/ PUPPY TRAINER schedules full Offered appt w/WRB for tomorrow w/xray order prior to appt Pt declined above appt for tomorrow-states I have somewhere I have to be tomorrow so I wanted to take care of it tonight Pt states she plans to go to Urgent care w/Xray capability tedight Encouraged pt to call back if needs to schedule appt for tomorrow for further eval Pt voices understand et has no further questions @ this time KMS-FYI above * Telephone Encounter - Rebeca Love - 04/28/2025 4:12 PM CDT Patient called stating that she fell in her yard and twisted her left wrist. States that she has broken this wrist in the past. Asking for next steps/xray. [phone] documented in this encounter Plan of Treatment Not on file documented as of this encounter Visit Diagnoses Not on filedocumented in this encounter Care Teams Instructional Facilitator Relationship Specialty Start Date End Date Micaela Mckay MD PCP - General 02/28/17 Filiberto Orona MD [address] [facility] [address] RENZO Badleras [address] [address] Surgeon Orthopedic Surgery 08/24/17 Blayne Christiansen MD [address] [facility] [address] RENZO Balderas [address] [address] Obstetrics and Gynecology 08/24/17 Lennox Tobin MD [address] [facility] [address] RENZO Balderas [address] [address] General Surgery 08/24/17 Berto Samson MD [address] [facility] [address] [place] [address] Consulting Physician Internal Medicine 09/30/17 Lester Hendrix OD [address] [place] [address] Optometry 03/31/18 Bryan Anderson MD [address] [place] [address] Consulting Physician Gastroenterology 05/09/19 Baudilio Parish MD [address] [place] [address] Consulting Physician Endocrinology Diabetes & Metabolism 05/12/19 Zach Khoury MD [address] [place] [address] Consulting Physician Neurology 07/09/21 Anton Sauer MD [address] [facility] [phone] [place] [address] Consulting Physician General Surgery 07/05/22 Tejas Lazcano DC [address] [place] [address] [place] [address] Referring Physician Chiropractic Medicine 08/27/23 Vu Lindsay MD PhD [address] [place] [address] Consulting Physician Orthopedic Surgery 11/22/24 documented as of this encounter
--- OUTSIDE RECORDS SUMMARY | 2025-04-28 16:49 | XMS_ITS | Encounter Summary ---
Author Organization [facility] Address [facility] [place] [address] Care Team Providers Care Correction Lieutenant Name Role Phone Micaela Mckay MD Primary Care Provider [phone] Filiberto Orona MD Unavailable [phone] Blayne Christiansen MD Unavailable Lennox Tobin MD Unavailable [phone] Berto Samson MD Unavailable Lester Hendrix OD Unavailable Bryan Anderson MD Unavailable Baudilio Parish MD Unavailable [phone] Zach Khoury MD Unavailable Anton Sauer MD Unavailable [phone] Tejas Lazcano DC Unavailable Vu Lindsay MD PhD Unavailable [phone] Reason for Referral * MRI/CAT/PET Scan (Routine) - Closed Specialty Diagnoses / Procedures Referred By Contac t Referred To Contact Radiology Diagnoses 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) Procedures MRI Abdomen W WO Contrast Berto Samson MD [address] [facility] [address] [place] [address] Phone: tel: fax: [address] [phone] Referral ID Status Reason Start Date Expiration Date Visits Re quested Visits Authorized [id number] Closed 02/07/2025 03/09/2026 1 1 Reason for Visit * MRI/CAT/PET Scan (Routine) - Closed Specialty Diagnoses / Procedures Referred By Contac t Referred To Contact Radiology Diagnoses 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) Procedures MRI Abdomen W WO Contrast Berto Samson MD [address] [address] Phone: tel: fax: [address] [phone] Referral ID Status Reason Start Date Expiration Date Visits Re quested Visits Authorized [id number] Closed 02/07/2025 03/09/2026 1 1 Encounter Details Date Type Department Care Team (Latest Contact Info) Description 04/28/2025 7:53 AM CDT Hospital Encounter [facility] Imaging and Radiology [address] [place] [phone] 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) Social History Tobacco Use Types Packs/Day Years [...] on file 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) documented in this encounter Administered Medications Inactive Administered Medications - up to 3 most recent administrations Medication Order MAR Action Action Date Dose Rate Site gadoxetate (EOVIST) injection 10 mL 10 mL, intravenous, Once in imaging, contrast, Starting on Eusebia 04/28/25 at 0802, For 1 dose Contrast Given 04/28/2025 8:20 AM CDT 10 mL documented in this encounter Orders Medications Ordered That Dagoberto ht Not Have Been Administered Count Last Ordered Date First Ordered Date gadoxetate (EOVIST) injection 10 mL 1 05/29 /2025 documented in this encounter Care Teams Correction Lieutenant Relationship Specialty Start Date End Date Micaela Mckay MD PCP - General 02/28/17 Filiberto Orona MD [address] [place] [address] DR RENZO Balderas [facility] [address] [place] [address] Surgeon Orthopedic Surgery 08/24/17 Blayne Christiansen MD [address] [place] [address] DR RENZO Balderas [address] [place] [address] Obstetrics and Gynecology 08/24/17 Lennox Tobin MD [address] [place] [address] DR RENZO Balderas [facility] [address] [place] [address] General Surgery 08/24/17 Berto Samson MD [address] [facility] [address] [place] [address] Consulting Physician Internal Medicine 09/30/17 Lester Hendrix OD [address] [place] [address] Optometry 03/31/18 Bryan Anderson MD [address] [place], [place] [address] Consulting Physician Gastroenterology 05/09/19 Baudilio Parish MD [address] [place] [address] Consulting Physician Endocrinology Diabetes & Metabolism 05/12/19 Zach Khoury MD [address] [place] [address] Consulting Physician Neurology 07/09/21 Anton Sauer MD [address] [facility] [phone] [place] [address] Consulting Physician General Surgery 07/05/22 Tejas Lazcano DC [address] [place] [address] [place] [address] Referring Physician Chiropractic Medicine 08/27/23 Vu Lindsay MD PhD [address] [place] [address] Consulting Physician Orthopedic Surgery 11/22/24 documented as of this encounter
--- OUTSIDE RECORDS SUMMARY | 2025-04-28 16:49 | XMS_ITS | Encounter Summary ---
Author Organization [facility] Address [address] [employer] [address] Phone Care Team Providers Care Customer Retention Representative Name Role Phone Micaela Mckay MD Primary Care Provider [phone] Darryl Hollingsworth MD Unavailable Vanessa Wilson MD Unavailable [phone] Baljinder Kent MD Unavailable Filiberto Orona MD Unavailable Blayne Christiansen MD Unavailable Lennox Tobin MD Unavailable [phone] Vanessa Wilson MD Unavailable [phone] Berto Samson MD Unavailable Lester Hendrix OD Unavailable Bryan Anderson MD Unavailable Baudilio Parish MD Unavailable [phone] Zach Khoury MD Unavailable Anton Sauer MD Unavailable [phone] Tejas Lazcano MS Unavailable [phone] Vu Lindsay MD PhD Unavailable [phone] Encounter Details Date Type Department Care Team (Late st Contact Info) Description 08/28/2017 Orders Only [facility] [address] [facility] [place] [phone] Micaela Mckay MD [address] [place] [address] Routine general medical examination at a health care facility (Primary Dx); Unspecified hypothyroidism; Mixed hyperlipidemia; Essential hypertension, malignant; Exposure to hepatitis C Social History Tobacco Use Types Packs/Day Years Used Date Smoking Tobacco: Never Smokeless Tobacco: Never Alcohol Use Standard Drinks/Week Comments Yes 0 (1 standard drink = 0.6 oz pur e alcohol) Comments No Sex and Gender Information Value Date Recorded Sex Assigned at Not on file 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 Gender Identity Not on file Sexual Orientation Not on file documented as of this encounter Plan of Treatment Not on file documented as of this encounter Results * TSH (08/29/2017 7:12 AM CDT) Thyroid Stimulating Hormone 0.98 0.30 - 5.00 mcIUnit/mL JESICA COWAN (JORDYN) Blood specimen (specimen) 08/29/2017 7:12 AM CDT 08/29/2017 7:38 AM CDT us Micaela Mckay MD LAB BLOOD ORDERABLES Final Result JESICA COWAN ([place]) 1 [facility] Department [place] [address] * (ABNORMAL) Lipid panel (08/29/2017 7:12 AM CDT) Cholesterol 178 40 - 199 mg/dL JESICA COWAN (JORDYN) Comment: Interpretive Data Desirable: Less than 200 mg/dl Borderline High: 200 - 239 mg/dl High: Greater than 239 mg/dl Current interpretive data was last revised on 2015. Triglycerides 215.0(H) <=150.0 mg/dL JESICA COWAN (JORDYN) Comment: Interpretive Data Normal: Less than 150 mg/dl Borderline high: 150-199 mg/dl High: 200-499 mg/dl Very high: Greater than or equal to 500 mg/dl Current interpretive data was last revised on 2017. HDL 42 40 - 60 mg/dL JESICA COWAN (JORDYN) Comment: Interpretive Data Low HDL Cholesterol: Less than 40 mg/dl Normal HDL Cholesterol: 40-60 mg/dl High HDL Cholesterol: Greater than 60 mg/dl Current interpretive data was last revised on 2015. LDL, calculated 93 mg/dL NABEEL COWAN (JORDYN) Comment: Interpretive Data Optimal Less than 100 mg/dL Near optimal/Above optimal 100 - 129 mg/dL Borderline high 130 - 159 mg/dL High 160 - 189 mg/dL Very high Greater than or = 190 mg/dL LDL values are not valid when the total Triglyceride is greater than 300 mg/dL. Current interpretive data was last revised on 2015. Non-HDL Cholesterol 136 mg/dL JESICA COWAN (JORDYN) Comment: Interpretive Data Optimal Less than 130 mg/dL Low Risk 130 - 159 mg/dL Moderate Risk 160 - 189 mg/dL High Risk Greater than or equal to 190 mg/dL Current interpretive data was last revised on 2015. Blood specimen (specimen) 08/29/2017 7:12 AM CDT 08/29/2017 7:38 AM CDT us Micaela Mckay MD LAB BLOOD ORDERABLES Final Result JESICA COWAN ([place]) 1 [facility] Department [place] [address] * Hepatitis C antibody (08/29/2017 7:12 AM CDT) Hep C Ab Negative Negative JESICA COWAN (JORDYN) Comment:Testing performed by : [facility], [address] [place] [address], [place]., [address] Blood specimen (specimen) 08/29/2017 7:12 AM CDT 08/29/2017 12:16 PM CDT us Micaela Mckay MD LAB MICROBIOLOGY - GENERAL ORDERABLES Final Result [facility] ([place]) 1 [facility] Department [place] [address] * (ABNORMAL) Comprehensive metabolic panel (08/29/2017 7:12 AM CDT) Sodium 141 135 - 145 mmol/L [facility] ([place]) Potassium 4.1 3.5 - 5.1 mmol/L [facility] ([place]) Chloride 100 97 - 110 mmol/L [facility] ([place]) CO2 28 22 - 32 mmol/L [facility] ([place]) Anion gap 13 8 - 16 mmol/L [facility] ([place]) Glucose 113 70 - 199 mg/dL [facility] ([place]) Comment: Interpretive Data Note:The glucose is assumed non fasting Fastin-99 mg/dL Random: 70-199 mg/dL Either a fasting glucose > 126 mg/dL or a random glucose > 200 mg/dL plus symptoms is diagnostic of diabetes when confirmed on another day. Fasting values > 100 mg/dL but < 125 mg/dL are diagnostic of impaired fasting glucose. Current interpretive data was last revised on 2015. BUN 15.3 8.0 - 25.0 mg/dL [facility] ([place]) Creatinine 0.68 0.60 - 1.10 mg/dL [facility] ([place]) BUN/creat ratio 22(H) 10 - 20 [facility] ([place]) Calcium 9.6 8.6 - 10.2 mg/dL [facility] ([place]) Protein, sr 7.0 6.0 - 8.4 g/dL [facility] ([place]) Albumin 4.5 3.6 - 5.0 g/dL [facility] ([place]) Alk phos 151(H) 40 - 130 Units/L [facility] ([place]) ALT 28 5 - 45 Units/L [facility] ([place]) AST 20 10 - 40 Units/L [facility] ([place]) Bilirubin, total 0.8 <=1.2 mg/dL JESICA COWAN ([place]) Blood specimen (specimen) 08/29/2017 7:12 AM CDT 08/29/2017 7:38 AM CDT us Micaela Mckay MD LAB BLOOD ORDERABLES Final Result JESICA CHAPO ([place]) 1 [facility] Department [place] [address] documented in this encounter Visit Diagnoses Diagnosis Routine general medical examination at a health care facility- Primary Unspecified hypothyroidism Mixed hyperlipidemia Essential hypertension, malignant Exposure to hepatitis C Contact with or exposure to other viral diseases documented in this encounter Care Teams Customer Retention Representative Relationship Specialty Start Date End Date Micaela Mckay MD PCP - General 02/28/17 Darryl Hollingsworth MD Gastroenterology 08/24/17 10/17/24 Vanessa Wilson MD Surgeon Orthopedic Surgery 08/24/17 06/06/21 Baljinder Kent MD Otolaryngology 08/24/17 10/17/24 Filiberto Orona MD [address] [place] [address] DR RENZO Balderas [address] [place] [address] Surgeon Orthopedic Surgery 08/24/17 Blayne Christiansen MD [address] [place] [address] DR RENZO Balderas [address] [place] [address] Obstetrics and Gynecology 08/24/17 Lennox Tobin MD [address] [place] [address] DR [address] [address] General Surgery 08/24/17 Vanessa Wilson MD Surgeon Orthopedic Surgery 08/29/17 06/06/21 Berto Samson MD [address] [facility] [address] [place] [address] Consulting Physician Internal Medicine 09/30/17 Lester Hendrix OD [address] [place] [address] Optometry 03/31/18 Bryan Anderson MD [address] [place] [address] Consulting Physician Gastroenterology 05/09/19 Baudilio Parish MD [address] [place] [address] Consulting Physician Endocrinology Diabetes & Metabolism 05/12/19 Zach Khoury MD [address] [place] [address] Consulting Physician Neurology 07/09/21 Anton Sauer MD [address] [facility] [phone] [place] [address] Consulting Physician General Surgery 07/05/22 Tejas Lazcano DC [address] [place] [address] [place] [address] Referring Physician Chiropractic Medicine 08/27/23 Vu Lindsay MD PhD [address] [place] [address] Consulting Physician Orthopedic Surgery 11/22/24 documented as of this encounter
--- OUTSIDE RECORDS SUMMARY | 2025-04-28 16:49 | XMS_ITS | Encounter Summary ---
Author Organization [facility] Address [address] [place] [address] Phone Care Team Providers Care Pta Name Role Phone Micaela Mckay MD Primary Care Provider [phone] Darryl Hollingsworth MD Unavailable Vanessa Wilson MD Unavailable [phone] Baljinder Kent MD Unavailable Filiberto Orona MD Unavailable [phone] Blayne Christiansen MD Unavailable [phone] Lennox Tobin MD Unavailable [phone] Vanessa Wilson MD Unavailable [phone] Berto Samson MD Unavailable Lester Hendrix OD Unavailable Bryan Anderson MD Unavailable Baudilio Parish MD Unavailable [phone] Zach Khoury MD Unavailable Anton Sauer MD Unavailable [phone] Unavailable [phone] Vu Lindsay MD PhD Unavailable [phone] Encounter Details Date Type Department Care Team (Late st Contact Info) Description 03/31/2018 Orders Only [facility] Provider, MD Aurelia [facility] [place] [address] Social History Tobacco Use Types Packs/Day Years Used Date Smoking Tobacco: Never Smokeless Tobacco: Never Alcohol Use Standard Drinks/Week Comments Yes 0 (1 standard drink = 0.6 oz pur e alcohol) Comments No Sex and Gender Information Value Date Recorded Sex Assigned at Not on file Legal Sex Female 11:59 PM [employer] Gender Identity Not on file Sexual Orientation Not on file 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 Historical Provider LAB BLOOD ORDERABLES Otilia l Result documented in this encounter Visit Diagnoses Not on filedocumented in this encounter Care Teams Pta Relationship Specialty Start Date End Date Micaela Mckay MD PCP - General 02/28/17 Darryl Hollingsworth MD Gastroenterology 08/24/17 10/17/24 Vanessa Wilson MD Surgeon Orthopedic Surgery 08/24/17 06/06/21 Baljinder Kent MD Otolaryngology 08/24/17 10/17/24 Filiberto Orona MD [address] [place] [address] [address]EN[address] Bal[address] [place] [address] Surgeon Orthopedic Surgery 08/24/17 Blayne Christiansen MD [address] [place] [address] [address] RENZO Bal[address] [place] [address] Obstetrics and Gynecology 08/24/17 Lennox Tobin MD [address] [place] [address] [address] RENZO Balderas [address] [place] [address] General Surgery 08/24/17 Vanessa Wilson MD Surgeon Orthopedic Surgery 08/29/17 06/06/21 Berto Samson MD [address] [facility] [address] [place] [address] Consulting Physician Internal Medicine 09/30/17 Lester Hendrix OD [address] [place] [address] Optometry 03/31/18 Bryan Anderson MD [address] [place], [place] [address] Consulting Physician Gastroenterology 05/09/19 Baudilio Parish MD [address] [place] [address] Consulting Physician Endocrinology Diabetes & Metabolism 05/12/19 Zach Khoury MD [address] [place] [address] Consulting Physician Neurology 07/09/21 Anton Sauer MD [address] [facility] [id number] [place] [address] Consulting Physician General Surgery 07/05/22 Tejas Lazcano DC [address] [place] [address] [place] [address] Referring Physician Chiropractic Medicine 08/27/23 Vu Lindsay MD PhD [address] [place] [address] Consulting Physician Orthopedic Surgery 11/22/24 documented as of this encounter
--- OUTSIDE RECORDS SUMMARY | 2025-04-28 16:49 | XMS_ITS | Clinical Summary ---
Author Organization [facility] Address [address] [place] [address] Care Team Providers Care Jigsaw Operator Name Role Phone Micaela Ren MD Primary Care Provider [phone] Filiberto Orona MD Unavailable [phone] Blayne Christiansen MD Unavailable Lennox Tobin MD Unavailable [phone] Berto Samson MD Unavailable Lester Hendrix OD Unavailable Bryan Anderson MD Unavailable [phone] Baudilio Parish MD Unavailable [phone] Zach Khoury MD Unavailable Anton Sauer MD Unavailable Tejas Lazcano DC Unavailable Vu Lindsay MD PhD Unavailable [phone] Allergies Active Allergy Reactions Criticality Noted Date [...] each nostril as directed 30 mL 11 11/03/20 24 Active carvediloL (COREG) 25 mg tabletIndications: [...] 01/06/2025 Assessment & Plan (01/06/2025 1:56 PM HOUSEKEEPING AID): Acute, symptoms for 2 days. Vesicular rash [...] (09/11/2021): Added automatically from request for surgery [id number] Osteoporosis, idiopathic 03/21/2021 Overview (09/01/2023): DEXA August [...] continued . 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 Samson s/p TACE. -no issues post procedure -dc home with IR recommendation medications -outpatient follow up w onc and IR Assessment & Plan (12/01/2024 9:47 AM HOUSEKEEPING AID): Metastatic neuroendocrine tumor to the liver on [...] HTN Assessment & Plan (12/30/2024 6:14 PM HOUSEKEEPING AID): Continue home coreg Assessment & Plan (11/30/2024 3:17 PM HOUSEKEEPING AID): Continue home coreg Assessment & Plan (07/03/2023 12:46 PM CDT): BP stable in office today on current therapy. No acute findings on exam. Continue current regimen and low salt diet. Multiple-type hyperlipidemia 04/16/2014 Overview (03/05/2017): Hyperlipemia, mixed Hypothyroidism, unspecified 04/16/2014 Overview (03/07/2017): Hypothyroidism Assessment & Plan (12/30/2024 6:14 PM HOUSEKEEPING AID): Continue home LT4 Assessment & Plan (11/30/2024 3:17 PM HOUSEKEEPING AID): Continue home synthroid Assessment & Plan (06/05/2020 [...] follow up with her previous surgeon, at [place], due to her previous surgical history. If symptoms return, recommend going to [place] ER. 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 Encounters Date Type Department Care Team Description 04/28/2025 7:53 AM CDT [facility] [address] [place] [address] 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) 04/28/2025 Telephone [facility] [address] [facility] [address] [place] [address] Micaela Ren MD Fall 04/04/2025 8:00 AM CDT Infusion [facility] at [address] [phone] 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) (Primary Dx) 04/04/2025 7:30 AM CDT Lab [facility] [address] [place] [address] 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) 03/29/2025 8:00 AM CDT Office Visit [facility] [address] [place] [phone] Zach Khoury MD JODEE (obstructive sleep apnea) (Primary Dx); Hypersomnia with sleep apnea; Overweight (BMI 25.0-29.9) 03/28/2025 Orders Only [facility] Floor [address] [place] [address] Berto Samson MD 03/07/2025 8:00 AM CDT Infusion [address] [address] 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) (Primary Dx) 03/07/2025 7:30 AM CDT Lab [facility] [address] [place] [phone] 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) 03/01/2025 Orders Only [facility] [address] [place] [address] [address] [place] [phone] Berto Samson MD 02/07/2025 11:15 AM CDT Infusion [address] [address] 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) (Primary Dx) 02/07/2025 11:00 AM CDT Lab [facility] [address] [place] [phone] 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) 02/07/2025 10:45 AM CDT Office Visit [facility] [address] [place] [phone] Berto Samson MD 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) (Primary Dx) 02/07/2025 10:30 AM CDT Lab [facility] [address] [place] [phone] Hypothyroidism, adult 02/07/2025 10:15 AM CDT Lab [facility] [address] [place] [phone] 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) from Last 3 Months Immunizations Immunization Administration Dates Next Due COVID-19 mRNA ([employer]) 0.3 m L (30 mcg) vaccine (12 [...] (Arexvy) 09/08/2023 Tdap 09/08/2023,07/15/2013 ZOSTER Recombinant 06/05/2018,03/30/2018 Surgical History Surgery Date Site/Laterality Comments THYROIDECTOMY 12/01/2004 - 11/30/2005 Thyroidectomy HERNIA REPAIR Hernia repair OTHER SURGICAL HISTORY Umbilical Hernia: Hernia repair OTHER SURGICAL HISTORY 12/01/2006 - 11/30/2007 Steriotactic Breast Bx OTHER SURGICAL HISTORY 12/01/2011 - 11/30/2012 cystocele, rectocele: Bladder tie-up and rectocele repair OTHER SURGICAL HISTORY fractured left wrist OTHER SURGICAL HISTORY Hernia repair umbilical OTHER SURGICAL HISTORY recto vaginal repair OTHER SURGICAL HISTORY D&C ,bladder tie up CARDIAC CATHETERIZATION COLONOSCOPY W/ POLYPECTOMY 09/05/2018 (+) Dr. Anderson polyps x3 pathology pending ESOPHAGOSCOPY / EGD 11/05/2018 Dr. Anderson (-) BREAST BIOPSY 12/01/2003 - 11/30/2004 Left Breast biopsy BREAST BIOPSY 12/01/2006 - 11/30/2007 Left Breast biopsy BREAST BIOPSY 12/01/2007 - 11/30/2008 Left Breast biopsy BREAST BIOPSY Breast biopsy ARTHROSCOPIC SURGERY 05/01/2017 - 05/30/2017 Left knee LIPOMA RESECTION 07/01/2018 - 07/31/2018 Right thigh COLONOSCOPY 12/01/2015 - 11/30/2016 date of last colonoscopy 2015. high risk colon cancer COLONOSCOPY 12/01/2017 - 11/30/2018 High risk colon cancer COLONOSCOPY 11/06/2021 (+) multiple diverticulosis throughout colon, 4 tubular adenoma 8-9 mm CATARACT EXTRACTION 10/31/2023 - 11/30/2023 Left CATARACT EXTRACTION 10/01/2023 - 10/30/2023 Right COLONOSCOPY 11/11/2024 (+) Dr. Anderson polyps x9 rechecked 3 years pathology pending EMBOLIZATION ORGAN ISCHEMIA OR INFARCTION 11/30/2024 N/A EMBOLIZATION ORGAN ISCHEMIA OR INFARCTION 12/30/2024 N/A Medical History Medical History Date Comments Hx Other Medical left breast bio psies (4) Hx Other Medical bladder tie up and rectocele repair Gastroesophageal reflux disease GERD Hypertension Hypertension Osteoporosis Osteoporosis Hyperlipidemia Hyperlipidemia Hx Other Medical 1985 Umbilical Herni a Hx Other Medical 2010 cystocele, rect ocele; Outcome: improved Breast cyst 2 para 2 Functional bowel disease DJD (degenerative joint disease) back and neck Abnormal mammogram 10/2008 left Menopause 2010 Metastatic malignant neuroen docrine 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 (HCC) 09/09/2017 Benign hypertension 04/16/2014 Benign essen tial HTN Multiple-type hyperlipidemia 04/16/2014 Hyp erlipemia, mixed Arthritis 02/16/2014 Hypothyroidism Fibrocystic breast Fracture 08/2020 right wrist Diverticulitis of colon with perforation 03/21/2022 Flagyl , Septra combination used to treat acute diverticulitis left lower quadrant, 1. Diverticulitis of the descending colon with contained perforation. No evidence of abscess. 2. No small bowel obstruction or appendicitis. 3. Similar appearance of hepatic metastatic disease to recent liver MRI. THIS IS AN ELECTRONICALLY VERIFIED FINAL REPORT 03/21/2022 4:36 PM Electronically signed b Colon polyp Covid-19 05/26/2022 Internal derangement of left knee 08/29/2017 Bucket tear left knee meniscus removed Dr. Love July 2017 Type 2 diabetes mellitus wit hout complication, without long-term current use of insulin (HCC) 12/14/2020 Neuroendocrine cancer (HCC) Family History Medical History Relation Name Comments Heart attack Father Heart disease Father Hypertension Father Other Father Diabetes Father's Brother 1 Stroke Father's Brother 2 Diabetes Father's Sister Arthritis Mother Heart disease Mother Hypertension Mother Osteoporosis Mother Other Mother Cancer Other 1 Diabetes Other 2 Stroke Other 3 Arthritis Other 4 Family history of Arthritis; Gout Other 5 Heart disease Other 6 Hypertension Other 7 Thyroid disease Other 8 Colon cancer Other 9 Pancreatic cancer Other 10 Prostate cancer Other 11 Coronary artery disease Other 12 Colon cancer Paternal Grandmother Hypertension Sister 1 Thyroid cancer Sister 1 Other Sister 2 Relation Name Status Comments Father Father's Brother 1 Father's Brother 2 Father's Sister Mother Other 1 Other 2 Other 3 Other 4 Other 5 Other 6 Other 7 Other 8 Other 9 Other 10 Other 11 Other 12 Paternal Grandmother Sister 1 Sister 2 Social History Tobacco Use Types Packs/Day Years [...] on file Legal Sex Female 11:59 PM HOUSEKEEPING AID Gender Identity Not on file Sexual Orientation Not on file 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 Not on file Not on file Obstetrics History Para Term AB IAB SAB Ectopic Multiple Livin g Live Births 2 2 2 Date Outcome GA Total Labor Labor//3rd Weight Sex Type Anes PTL Demetrio A1 A5 Name Clin Term Term Last Filed Vital Signs Vital Sign Reading [...] 03/29/2025 8:17 AM CDT Plan of Treatment Health Maintenance Due Date Last Done Comments Covid-19 Vaccine (7 - Modern a risk ) 03/02/2025 09/01/2024, 09/24/2023, 09/24/2022, Additional history exists Lipid Panel 03/12/2025 03/12/2024, 01/29, 06/05/2020, Additional history exists Hemoglobin A1C 03/21/2025 09/20/2024, 03/01, 08/18/2023, Additional history exists Osteoporosis Screening-Bone Density Scan 09/01/2025 09/01/2023, 03/21/2021, 12/20/2014 Breast Cancer Screening-Mammogram 09/14/2025 09/14/2024, 08/27/2023, 07/08/2022, Additional history exists Albumin Creatinine Ratio, Urine 09/20/2025 09/20/2024, 08/18/2023, 02/08/2023, Additional history exists Depression Screening 11/03/2025 11/03/2024, 08/26/2023, 08/26/2023, Additional history exists Foot Exam 11/03/2025 11/03/2024 Well Visit 65+ 11/03/2025 11/03/2024, 08/02, 08/14/2022, Additional history exists Dilated Eye Exam 11/09/2025 11/09/2024 Fall Risk Assessment 12/31/2025 12/31/2024, 11/03/2024, 08/26/2023, Additional history exists eGFR 04/04/2026 04/04/2025, 04/0 05/2025, 02/07/2025, Additional history exists Colon Cancer Screening-Colonoscopy 11/11/2027 11/11/2024, 11/06/2021, 11/05/2018, Additional history exists DTaP/Tdap/Td Vaccine (3 - Td or Tdap) 09/08/2033 09/08/2023, 07/15/2013 Hepatitis C Screening Completed 08/29/2017 Zoster Vaccine Completed 06/05/2018, 03/30/2018 Influenza Vaccine Completed 09/01/2024, , 09/24/2022, Additional history exists Pneumococcal vaccine 65+ Completed 024, 05/12/2019, 09/09/2017 Hepatitis B Screening Completed 11/03/2024 Colon Cancer Screening-CT Colonography Discontinued 11/11/2024, 11/06/2021, 11/05/2018, Additional history exists Colon Cancer Screening-DNA Stool Discontinued 11/11/2024, 11/06/2021, 11/05/2018, Additional history exists Colon Cancer Screening-FIT Discontinued 11/11, 11/06/2021, 11/05/2018, Additional history exists Colon Cancer Screening-Sigmoidoscopy Discontinued 11/11/2024, 11/06/2021, 11/05/2018, Additional history exists Medical Devices Implanted Type Area Flat Breakdown Processor Device Identifier Shelf Expiration Date Model / Serial / Lot [employer] Mynx Control 6-7fr 2 Mode Balloon Catheter Sealant Lock Syringe [id number] - [id number] Implanted:Qty: 1 on 11/30/2024 at [facility] [employer] [id number] 10/14/2026 [id number] / / [id number] [employer] Mynx Control 6-7fr 2 Mode Balloon Catheter Sealant Lock Syringe [id number] - [id number] Implanted:Qty: 1 on 12/30/2024 by Blake Gallegos MD at [facility] Right: Groin [employer] 10/14/2026 [id number] / / [id number] Procedures Procedure Name Priority Date/Time Associated Diagnosis [...] CDT Hypothyroidism, adult COLONOSCOPY 11/11/2024 11:18 AM HOUSEKEEPING AID HM DIABETES EYE EXAM Routine 11/09/2024 3:31 PM HOUSEKEEPING AID ALBUMIN CREATININE RATIO, URINE Routine 09/20/2024 10:58 [...] by: Alexei Rossi M.D. Berto Samson MD IM MRI PROCEDURES Final Result * eGFR (04/04/2025 [...] was last reviewed 2021. Testing performed by: [facility] [address] Blood 04/04/2025 7:47 AM CDT 04/04/2025 7:47 AM CDT Berto Samson MD LAB BLOOD ORDERABLES Otilia ethan Result [facility] [address] [facility] Department [place] [address] * Differential, auto (04/04/2025 7:47 AM CDT) Neutrophil abs 3.07 1.50 - 6.50 K/cumm Comment:Testing performed by : [facility] [place] [address] Imm gran abs 0.01 0.00 - 0.10 K/cumm [facility] CH Comment:Testing performed by : [facility] [place] [address] Lymphocyte abs 1.79 0.80 - 3.30 K/cumm [facility] CH Comment:Testing performed by : [facility] [place] [address] Monocyte abs 0.52 0.20 - 0.80 K/cumm [facility] CH Comment:Testing performed by : [facility] [place] [address] Eosinophil abs 0.15 0.00 - 0.50 K/cumm [facility] CH Comment:Testing performed by : [facility] [place] [address] Basophil abs 0.05 0.00 - 0.10 K/cumm [facility] CH Comment:Testing performed by : [facility] [place] [address] Neutrophil pct 54.9 % [facility] CH Comment: Interpretive Data Percent cell count reference ranges are not reported, since discordance with absolute values may lead to misinterpretation of CBC data. Current Interpretive Data was last revised on 2018. Testing performed by: [facility] [place] [address] Imm gran pct 0.2 % [facility] CH Comment: Interpretive Data Percent cell count reference ranges are not reported, since discordance with absolute values may lead to misinterpretation of CBC data. Current Interpretive Data was last revised on 2018. Testing performed by: [facility] [place] [address] Lymphocyte pct 32.0 % [facility] Comment: Interpretive Data Percent cell count reference ranges are not reported, since discordance with absolute values may lead to misinterpretation of CBC data. Current Interpretive Data was last revised on 2018. Testing performed by: [facility] [place] [address] Monocyte pct 9.3 % [facility] Comment: Interpretive Data Percent cell count reference ranges are not reported, since discordance with absolute values may lead to misinterpretation of CBC data. Current Interpretive Data was last revised on 2018. Testing performed by: [facility] [place] [address] Eosinophil pct 2.7 % [facility] Comment: Interpretive Data Percent cell count reference ranges are not reported, since discordance with absolute values may lead to misinterpretation of CBC data. Current Interpretive Data was last revised on 2018. Testing performed by: [facility] [place] [address] Basophil pct 0.9 % [facility] Comment: Interpretive Data Percent cell count reference ranges are not reported, since discordance with absolute values may lead to misinterpretation of CBC data. Current Interpretive Data was last revised on 2018. Testing performed by: [facility] [place] [address] Blood 04/04/2025 7:47 AM CDT 04/04/2025 7:47 AM CDT us Berto Samson MD LAB BLOOD ORDERABLES Otilia l Result [facility] [address] [address] Department [place] [address] * (ABNORMAL) Chromogranin A (04/04/2025 7:47 AM CDT) Chromogranin A 454(H) <93 ng/mL [facility] Comment: Impaired renal or hepatic function or treatment with proton pump inhibitors may result in artifactual elevations of Chromogranin A. ADDITIONAL INFORMATION The testing method is a homogeneous time-resolved immunofluorescent assay manufactured by [employer] and performed on the Latio Kryptor Compact Plus. Values obtained with different [...] examination and other findings. Test Performed by: [place] [address] Web Site Specialist: Becka Jules Ph.D.; CLIA# [id number] Blood 04/04/2025 7:47 AM CDT 04/04/2025 10:25 AM CDT Berto Samson MD LAB BLOOD ORDERABLES Otilia long Result [facility] [address] [address] Department [place] [address] [place] ref Lab * CBC with auto differential (04/04/2025 7:47 AM CDT) WBC 5.59 3.80 - 9.90 K/cumm Comment:Testing performed by : [facility] [place] [address] Hgb 14.0 11.9 - 15.5 g/dL JESICA SANABRIA Comment:Testing performed by : [facility] [place] [address] Hct 41.8 35.6 - 45.5 % JESICA SANABRIA Comment:Testing performed by : [facility] [place] [address] Plt 151 150 - 400 K/cumm [facility] CH Comment:Testing performed by : [facility] [place] [address] MPV 9.8 9.1 - 12.3 fL [facility] Comment:Testing performed by : [facility] [place] [address] RBC 4.79 3.90 - 5.20 M/cumm [facility] CH Comment:Testing performed by : [facility] [place] [address] MCV 87.3 81.3 - 96.4 fL [facility] Comment:Testing performed by : [facility] [place] [address] MCH 29.2 27.1 - 33.3 pg [facility] Comment:Testing performed by : [facility] [place] [address] MCHC 33.5 32.3 - 35.7 g/dL [facility] CH Comment:Testing performed by : [facility] [place] [address] RDW CV 14.8 11.1 - 14.9 % [facility] CH Comment:Testing performed by : [facility] [place] [address] RDW SD 47.5 35.7 - 48.1 fL [facility] Comment:Testing performed by : [facility] [place] [address] NRBC abs 0.00 0.00 - 0.01 K/cumm [facility] CH Comment:Testing performed by : [facility] [place] [address] ANC Prelim 3.07 1.50 - 6.50 K/cumm CERNER Comment: Interpretive Data The rapid ANC is a preliminary automated count and may vary from the final ANC (Neut Abs) reported in the WBC differential that follows. Current interpretive data was last revised 2025. Testing performed by: [facility] [place] [address] Blood 04/04/2025 7:47 AM CDT 04/04/2025 7:47 AM CDT Berto Samson MD LAB BLOOD [place] [address] [address] [place] [address] * (ABNORMAL) Serotonin serum (04/04/2025 7:47 AM CDT) Pathologist [facility] Serotonin 1550(H) <=230 ng/mL [facility] Comment: ADDITIONAL INFORMATION This test was developed and its performance characteristics determined by [facility] in a manner consistent with CLIA requirements. This test has not been cleared or approved by the U.S. Food and Drug Administration. Test Performed by: [place] [address] Web Site Specialist: Becka Jules Ph.D.; CLIA# [id number] Blood 04/04/2025 7:47 AM CDT 04/04/2025 10:26 AM CDT Berto Samson MD LAB BLOOD ORDERABLES Otilia l Result [facility] [address] [address] [place] [address] [facility] * (ABNORMAL) Comprehensive metabolic panel (04/04/2025 7:47 AM CDT) Pathologist [facility] Sodium 141 135 - 145 mmol/L Comment:Testing performed by : [facility] [place] [address] Potassium, pl 4.5 3.3 - 4.9 mmol/L [facility] Comment:Testing performed by : [facility] [place] [address] Chloride 104 97 - 110 mmol/L [facility] Comment:Testing performed by : [facility] [place] [address] CO2 27 22 - 32 mmol/L [facility] Comment:Testing performed by : [facility] [place] [address] Anion gap 10 2 - 15 mmol/L [facility] Comment:Testing performed by : [facility] [place] [address] BUN 22 6 - 25 mg/dL [facility] Comment:Testing performed by : [facility] [place] [address] Creatinine 0.77 0.60 - 1.10 mg/dL [facility] Comment:Testing performed by : [facility] [place] [address] Glucose 131 70 - 199 mg/dL CERNER [...] was last revised 2022. Testing performed by: [facility] [place] [address] Calcium 9.2 8.5 - 10.3 mg/dL [facility] Comment:Testing performed by : [facility] [place] [address] Bilirubin, total 0.7 0.1 - 1.2 mg/dL [facility] Comment:Testing performed by : [facility] [place] [address] Protein, pl 6.5 6.5 - 8.5 g/dL [facility] Comment:Testing performed by : [facility] [place] [address] Albumin 4.3 3.5 - 5.0 g/dL [facility] Comment:Testing performed by : [facility] [place] [address] Alk phos 198(H) 40 - 130 Units/L [facility] Comment:Testing performed by : [facility] [place] [address] ALT 22 7 - 45 Units/L [facility] Comment:Testing performed by : [facility] [place] [address] AST 24 10 - 45 Units/L [facility] CH Comment:Testing performed by : [facility] [place] [address] Blood 04/04/2025 7:47 AM CDT 04/04/2025 7:47 AM CDT Berto Samson MD LAB BLOOD ORDERABLES Otilia l Result [facility] [address] [address] [place] [address] * eGFR (03/07/2025 7:42 AM CDT) eGFR [...] was last reviewed 2021. Testing performed by: [facility] [place] [address] Blood 03/07/2025 7:42 AM CDT 03/07/2025 7:42 AM CDT Berto Samson MD LAB BLOOD ORDERABLES Otilia l Result [facility] [address] [address] [place] [address] * Differential, auto (03/07/2025 7:42 AM CDT) Neutrophil abs 3.39 1.50 - 6.50 K/cumm Comment:Testing performed by : [facility] [place] [address] Imm gran abs 0.01 0.00 - 0.10 K/cumm [facility] CH Comment:Testing performed by : [facility] [place] [address] Lymphocyte abs 1.39 0.80 - 3.30 K/cumm [facility] CH Comment:Testing performed by : [facility] [place] [address] Monocyte abs 0.38 0.20 - 0.80 K/cumm [facility] CH Comment:Testing performed by : [facility] [place] [address] Eosinophil abs 0.13 0.00 - 0.50 K/cumm [facility] CH Comment:Testing performed by : [facility] [place] [address] Basophil abs 0.04 0.00 - 0.10 K/cumm [facility] CH Comment:Testing performed by : [facility] [place] [address] Neutrophil pct 63.6 % [facility] Comment: Interpretive Data Percent cell count reference ranges are not reported, since discordance with absolute values may lead to misinterpretation of CBC data. Current Interpretive Data was last revised on 2018. Testing performed by: [facility] [place] [address] Imm gran pct 0.2 % CERNER CH Comment: Interpretive Data Percent cell count reference ranges are not reported, since discordance with absolute values may lead to misinterpretation of CBC data. Current Interpretive Data was last revised on 2018. Testing performed by: [facility] [place] [address] Lymphocyte pct 26.0 % CERNER CH Comment: Interpretive Data Percent cell count reference ranges are not reported, since discordance with absolute values may lead to misinterpretation of CBC data. Current Interpretive Data was last revised on 2018. Testing performed by: [facility] [place] [address] Monocyte pct 7.1 % CERNER CH Comment: Interpretive Data Percent cell count reference ranges are not reported, since discordance with absolute values may lead to misinterpretation of CBC data. Current Interpretive Data was last revised on 2018. Testing performed by: [facility] [place] [address] Eosinophil pct 2.4 % [facility] Comment: Interpretive Data Percent cell count reference ranges are not reported, since discordance with absolute values may lead to misinterpretation of CBC data. Current Interpretive Data was last revised on 2018. Testing performed by: [facility] [place] [address] Basophil pct 0.7 % [facility] Comment: Interpretive Data Percent cell count reference ranges are not reported, since discordance with absolute values may lead to misinterpretation of CBC data. Current Interpretive Data was last revised on 2018. Testing performed by: [facility] [address] Blood 03/07/2025 7:42 AM CDT 03/07/2025 7:42 AM CDT us Berto Samson MD LAB BLOOD ORDERABLES Otilia long Result JESICA [address] Department [place] [address] * (ABNORMAL) Chromogranin A (03/07/2025 7:42 AM CDT) Chromogranin A 345(H) <93 ng/mL [place] [facility] Comment: Impaired renal or hepatic function or treatment with proton pump inhibitors may result in artifactual elevations of Chromogranin A. ADDITIONAL INFORMATION The testing method is a homogeneous time-resolved immunofluorescent assay manufactured by [employer] and performed on the Latio KrMedSolutionsor Compact Plus. Values obtained with different assay [...] other findings. Test Performed by: [facility] - [facility] [address] [place] [address] Web Site Specialist: Becka Jules Ph.D.; CLIA# [id number] Blood 03/07/2025 7:42 AM CDT 03/07/2025 12:12 PM CDT us Berto Samson MD LAB BLOOD ORDERABLES Otilia long Result JESICA SANABRIA [address] Department [place] [address] [place] ref Lab * (ABNORMAL) CBC with auto differential (03/07/2025 7:42 AM CDT) WBC 5.34 3.80 - 9.90 K/cumm Comment:Testing performed by : [facility] [place] [address] Hgb 13.2 11.9 - 15.5 g/dL JESICA Comment:Testing performed by : [facility] [place] [address] Hct 40.2 35.6 - 45.5 % JESICA Comment:Testing performed by : [facility] [place] [id number] Plt 157 150 - 400 K/cumm JESICA Comment:Testing performed by : [facility] [place] [address] MPV 9.7 9.1 - 12.3 fL JESICA CH Comment:Testing performed by : [facility] [place] [id number] RBC 4.65 3.90 - 5.20 M/cumm JESICA CH Comment:Testing performed by : [facility] [place] [address] MCV 86.5 81.3 - 96.4 fL CERJORDIN CH Comment:Testing performed by : [facility] [place] [address] MCH 28.4 27.1 - 33.3 pg JESICA SANABRIA Comment:Testing performed by : [facility] [place] [address] MCHC 32.8 32.3 - 35.7 g/dL JESICA SANABRIA Comment:Testing performed by : [facility] [place] [address] RDW CV 15.2(H) 11.1 - 14.9 % JESICA SANABRIA Comment:Testing performed by : [facility] [place] [address] RDW SD 48.5(H) 35.7 - 48.1 fL JESICA SANABRIA Comment:Testing performed by : [facility] [place] [address] NRBC abs 0.00 0.00 - 0.01 K/cumm JESICA Comment:Testing performed by : [facility] [place] [address] ANC Prelim 3.39 1.50 - 6.50 K/cumm JESICA Comment: Interpretive Data The rapid ANC is a preliminary automated count and may vary from the final ANC (Neut Abs) reported in the WBC differential that follows. Current interpretive data was last revised 2025. Testing performed by: [facility] [place] [address] Blood 03/07/2025 7:42 AM CDT 03/07/2025 7:42 AM CDT Berto Samson MD LAB BLOOD ORDERABLES Otilia long Result [facility] [address] Department [place] [address] * (ABNORMAL) Serotonin serum (03/07/2025 7:42 AM CDT) Serotonin 1300(H) <=230 ng/mL [place] [facility] Comment: ADDITIONAL INFORMATION This test was developed and its performance characteristics determined by [facility] in a manner consistent with CLIA requirements. This test has not been cleared or approved by the U.S. Food and Drug Administration. Test Performed by: [facility] [address] [place] [address] Web Site Specialist: Becka Jules Ph.D.; CLIA# [id number] Blood 03/07/2025 7:42 AM CDT 03/07/2025 12:21 PM CDT us Berto Samson MD LAB BLOOD ORDERABLES Otilia long Result [facility] [address] Department [place] [address] [place] ref [facility] * (ABNORMAL) Comprehensive metabolic panel (03/07/2025 7:42 AM CDT) Sodium 140 135 - 145 mmol/L Comment:Testing performed by : [facility] [place] [address] Potassium, pl 4.2 3.3 - 4.9 mmol/L CERNER Comment:Testing performed by : [facility] [place] [address] Chloride 102 97 - 110 mmol/L CERNER Comment:Testing performed by : [facility] [place] [address] CO2 27 22 - 32 mmol/L CERNER CH Comment:Testing performed by : [facility] [place] [address] Anion gap 11 2 - 15 mmol/L CERNER Comment:Testing performed by : [facility] [place] [address] BUN 17 6 - 25 mg/dL CERNER CH Comment:Testing performed by : [facility] [place] [id number] Creatinine 0.64 0.60 - 1.10 mg/dL CERNER CH Comment:Testing performed by : [facility] [place] [address] Glucose 153 70 - 199 mg/dL CERNER Comment: Interpretive Data Fasting glucose >/= 126 [...] was last revised 2022. Testing performed by: [facility] [place] [address] Calcium 9.2 8.5 - 10.3 mg/dL CERNER CH Comment:Testing performed by : [facility] [place] [address] Bilirubin, total 0.6 0.1 - 1.2 mg/dL CERNER CH Comment:Testing performed by : [place] [address] Protein, pl 6.8 6.5 - 8.5 g/dL CERNER CH Comment:Testing performed by : [facility] [place] [address] Albumin 4.1 3.5 - 5.0 g/dL CERNER CH Comment:Testing performed by : [facility] [place] [address] Alk phos 189(H) 40 - 130 Units/L CERNER CH Comment:Testing performed by : [facility] [place] [address] ALT 20 7 - 45 Units/L CERNER CH Comment:Testing performed by : [facility] [place] [address] AST 28 10 - 45 Units/L CERNER CH Comment:Testing performed by : [facility] [place] [address] Blood 03/07/2025 7:42 AM CDT 03/07/2025 7:42 AM CDT us Berto Samson MD LAB BLOOD ORDERABLES Otilia long Result [facility] [address] Department [place] [address] * eGFR (02/07/2025 10:20 AM [...] was last reviewed 2021. Testing performed by: [facility] [place] [address] Blood 02/07/2025 10:2 0 AM CDT 02/07/2025 10:20 AM CDT us Berto Samsno MD LAB BLOOD ORDERABLES Otilia l Result JESICA [address] Department [place] [address] * Differential, auto (02/07/2025 10:20 AM CDT) Pathologist [facility] Neutrophil abs 3.8 1.5 - 6.5 K/cumm Comment:Testing performed by : [facility] [place] [address] Imm gran abs 0.0 0.0 - 0.1 K/cumm JESICA SANABRIA Comment:Testing performed by : [facility] [place] [address] Lymphocyte abs 1.5 0.8 - 3.3 K/cumm CERNER CH Comment:Testing performed by : [facility] [place] [address] Monocyte abs 0.4 0.2 - 0.8 K/cumm CERNER CH Comment:Testing performed by : [facility] [place] [address] Eosinophil abs 0.2 0.0 - 0.5 K/cumm CERNER CH Comment:Testing performed by : [facility] [place] [address] Basophil abs 0.1 0.0 - 0.1 K/cumm CERNER CH Comment:Testing performed by : [facility] [place] [address] Neutrophil pct 62.9 % CERNER CH Comment: Interpretive Data Percent cell count reference ranges are not reported, since discordance with absolute values may lead to misinterpretation of CBC data. Current Interpretive Data was last revised on 2018. Testing performed by: [facility] [place] [address] Imm gran pct 0.3 % CERNER Comment: Interpretive Data Percent cell count reference ranges are not reported, since discordance with absolute values may lead to misinterpretation of CBC data. Current Interpretive Data was last revised on 2018. Testing performed by: [facility] [place] [address] Lymphocyte pct 24.8 % CERNER Comment: Interpretive Data Percent cell count reference ranges are not reported, since discordance with absolute values may lead to misinterpretation of CBC data. Current Interpretive Data was last revised on 2018. Testing performed by: [facility] [place] [address] Monocyte pct 7.1 % CERNER Comment: Interpretive Data Percent cell count reference ranges are not reported, since discordance with absolute values may lead to misinterpretation of CBC data. Current Interpretive Data was last revised on 2018. Testing performed by: [facility] [place] [address] Eosinophil pct 3.6 % CERNER Comment: Interpretive Data Percent cell count reference ranges are not reported, since discordance with absolute values may lead to misinterpretation of CBC data. Current Interpretive Data was last revised on 2018. Testing performed by: [facility] [place] [address] Basophil pct 1.3 % JESICA SANABRIA Comment: Interpretive Data Percent cell count reference ranges are not reported, since discordance with absolute values may lead to misinterpretation of CBC data. Current Interpretive Data was last revised on 2018. Testing performed by: [facility] at [facility], [place] [address] Blood 02/07/2025 10:2 0 AM CDT 02/07/2025 10:20 AM CDT us Berto Samson MD LAB BLOOD ORDERABLES Otilia long Result JESICA SANABRIA [address] Department [place] [address] * (ABNORMAL) Chromogranin A (02/07/2025 10:20 AM CDT) Chromogranin A 303(H) <93 ng/mL [place] ref Lab Comment: Impaired renal or hepatic function or treatment with proton pump inhibitors may result in artifactual elevations of Chromogranin A. ADDITIONAL INFORMATION The testing method is a homogeneous time-resolved immunofluorescent assay manufactured by [employer] and performed on the [employer] Kryptor Compact Plus. Values obtained with different [...] other findings. Test Performed by: [facility] - [address] [address] Web Site Specialist: Becka Jules Ph.D.; CLIA# [id number] Blood 02/07/2025 10:2 0 AM CDT 02/07/2025 12:16 PM CDT Berto Samson MD LAB BLOOD ORDERABLES Otilia ethan Result JESICA [address] Department [place] [address] [place] ref Lab * (ABNORMAL) CBC with auto differential (02/07/2025 10:20 AM CDT) WBC 6.1 3.8 - 9.9 K/cumm Comment:Testing performed by : [facility] [place] [address] Hgb 12.9 11.9 - 15.5 g/dL CERNER CH Comment:Testing performed by : [facility] [place] [address] Hct 41.2 35.6 - 45.5 % CERNER CH Comment:Testing performed by : [facility] [place] [address] Plt 185 150 - 400 K/cumm CERNER CH Comment:Testing performed by : [facility] [place] [address] MPV 9.7 9.1 - 12.3 fL CERNER CH Comment:Testing performed by : [facility] [place] [address] RBC 4.71 3.90 - 5.20 M/cumm CERNER CH Comment:Testing performed by : [facility] [place] [address] MCV 87.5 81.3 - 96.4 fL CERNER CH Comment:Testing performed by : [facility] [place] [address] MCH 27.4 27.1 - 33.3 pg CERNER CH Comment:Testing performed by : [facility] [place] [address] MCHC 31.3(L) 32.3 - 35.7 g/dL CERNER CH Comment:Testing performed by : [facility] [place] [address] RDW CV 15.3(H) 11.1 - 14.9 % CERNER CH Comment:Testing performed by : [facility] [place] [address] RDW SD 48.8(H) 35.7 - 48.1 fL JESICA SANABRIA Comment:Testing performed by : [facility] [place] [address] NRBC abs 0.00 0.00 - 0.01 K/cumm JESICA SANABRIA Comment:Testing performed by : [facility] [place] [address] Blood 02/07/2025 10:2 0 AM CDT 02/07/2025 10:20 AM CDT us Berto Samson MD LAB BLOOD ORDERABLES Otilia l Result Performing Organization Address City/[facility]/ZIP Co de Phone Number JESICA [address] [facility] [address] * TSH (02/07/2025 10:20 AM CDT) Thyroid Stimulating Hormone 1.85 0.30 - 4.20 mcIUnit/mL Blood 02/07/2025 10:2 0 AM CDT 02/07/2025 11:02 AM CDT us Micaela Ren MD LAB BLOOD ORDERABLES Final Result Performing Organization Address [facility] Co de Phone Number JESICA [address] [facility] [address] * T4, free (02/07/2025 10:20 AM CDT) Free T4 1.57 0.90 - 1.70 ng/dL Blood 02/07/2025 10:2 0 AM CDT 02/07/2025 11:02 AM CDT us Micaela Ren MD LAB BLOOD ORDERABLES Final Result Performing Organization Address City/[facility]/ZIP Co de Phone Number JESICA [address] [facility] [place], [place] [id number] * (ABNORMAL) Serotonin serum (02/07/2025 10:20 AM CDT) Pathologist [facility] Serotonin 1200(H) <=230 ng/mL [place] ref Lab Comment: ADDITIONAL INFORMATION This test was developed and its performance characteristics determined by [facility] in a manner consistent with CLIA requirements. This test has not been cleared or approved by the U.S. Food and Drug Administration. Test Performed by: [facility] [address] [place] [address] Web Site Specialist: Becka Jules Ph.D.; CLIA# [id number] Blood 02/07/2025 10:2 0 AM CDT 02/07/2025 12:17 PM CDT Berto Samson MD LAB BLOOD ORDERABLES Otilia long Result [facility] [address] [place] [address] [facility] Lab * (ABNORMAL) Comprehensive metabolic panel (02/07/2025 10:20 AM CDT) Pathologist [facility] Sodium 140 135 - 145 mmol/L Comment:Testing performed by : [facility] [place] [address] Potassium, pl 4.4 3.3 - 4.9 mmol/L CERNER CH Comment:Testing performed by : [facility] [place] [address] Chloride 103 97 - 110 mmol/L CERNER CH Comment:Testing performed by : [facility] [place] [address] CO2 27 22 - 32 mmol/L CERNER CH Comment:Testing performed by : [facility] [place] [address] Anion gap 10 2 - 15 mmol/L CERNER CH Comment:Testing performed by : [facility] [place] [address] BUN 16 6 - 25 mg/dL CERNER CH Comment:Testing performed by : [facility] [place] [address] Creatinine 0.70 0.60 - 1.10 mg/dL CERNER CH Comment:Testing performed by : [facility] [place] [address] Glucose 146 70 - 199 mg/dL CERNER [...] was last revised 2022. Testing performed by: [facility] [place] [address] Calcium 9.9 8.5 - 10.3 mg/dL CERNER CH Comment:Testing performed by : [facility] [place] [address] Bilirubin, total 0.7 0.1 - 1.2 mg/dL CERNER CH Comment:Testing performed by : [facility] [place] [address] Protein, pl 7.4 6.5 - 8.5 g/dL CERNER CH Comment:Testing performed by : [facility] [place] [address] Albumin 4.4 3.5 - 5.0 g/dL CERNER CH Comment:Testing performed by : [facility] [place] [address] Alk phos 264(H) 40 - 130 Units/L CERNER CH Comment:Testing performed by : [facility] [place] [address] ALT 15 7 - 45 Units/L CERNER CH Comment:Testing performed by : [facility] [place] [address] AST 24 10 - 45 Units/L CERNER CH Comment:Testing performed by : [facility] [place] [address] Blood 02/07/2025 10:2 0 AM CDT 02/07/2025 10:20 AM CDT us Berto Samson MD LAB BLOOD ORDERABLES Otilia long Result JESICA [address] [facility] Department [place] [address] * Colonoscopy (11/11/2024 11:18 AM HOUSEKEEPING AID) Anatomical Region Laterality Modality Other Narrative Procedure Note Bryan Anderson MD - 11/11/2024 11:18 AM CST [facility] Endoscopy Lab Patient Name: Carla Azul Procedure [...] (Anesthesia Staff), Magi Solano RN, Martha Ann, Baggage Inspector Referring MD: Micaela Ren M.D. Medicines: [...] by the physician, the nurse and the ux developer designer in the procedure room. Mental Status Examination: [...] for surveillance. Procedure Code(s): --- Professional --- 36847, Colonoscopy, flexible; with removal of tumor(s), polyp(s), or other lesion(s) by snare technique 15570, 59, Colonoscopy, flexible; with biopsy,single or multiple Diagnosis Code(s): --- Professional --- Z86.010, Personal history of colonic polyps D12.0, Benign neoplasm of cecum D12.3, Benign neoplasm of transverse colon (hepatic flexure or splenic flexure) D12.2, Benign neoplasm of ascending colon Z80.0, Family history of malignant neoplasm of digestive organs CPT copyright 2020 [employer]. All rights reserved. The codes documented in this report are preliminary and upon senior oracle dba reviewmay be revised to meet current compliance requirements. Electronically signed by Bryan Anderson M.D. Bryan Anderson M.D. 11/11/2024 12:22:18 PM Number of Addenda: 0 Note Initiated On: 11/11/2024 11:18 AM Bryan Anderson MD ENDOSCOPY PROCEDURES Ed ited Result - Final * DIABETES EYE EXAM (11/09/2024 3:31 PM HOUSEKEEPING AID) Generic External Data Provider HEALTH MAINTENANC E [...] 8 AM CDT 09/20/2024 11:50 AM CDT Micaela Ren MD LAB URINE ORDERABLES Final Result Performing Organization Address [facility] Co de Phone Number JESICA SANABRIA [address] [facility] [address] * (ABNORMAL) Hemoglobin A1c (09/20/2024 10:15 AM CDT) Hgb A1C 5.8(H) 4.0 - 5.6 % Estimated Average Glucose 120 mg/dL JESICA SANABRIA Comment: The ADA recommends reporting an estimated Average Glucose (eAG) with all Hemoglobin A1c results using the equation derived from a study of 507 normal and diabetic adults. Minority populations were underrepresented and children were not included. (Diabetes Care 31:2022-1243, 2008). The eAG is not equivalent to a fasting glucose. Blood 09/20/2024 10:1 5 AM CDT 09/20/2024 10:52 AM CDT Micaela Ren MD LAB BLOOD ORDERABLES Final Result Performing Organization Address [facility] Co de Phone Number JESICA SANABRIA [address] [facility] [address] * Screening Mammogram Bilateral W Damon (09/14/2024 [...] last revised on 2018. Testing performed by: [facility], [address] [place] [address], [place] [address] Triglycerides 117 <=149 mg/dL [facility] Comment: Interpretive Data Ages < or = [...] last revised on 2018. Testing performed by: [facility], [address] [place] [address]., [address] HDL 48 >=40 mg/dL JESICA Comment: Interpretive Data Ages < [...] last revised on 2018. Testing performed by: [address] [address] LDL, calculated 73 <=129 mg/dL [facility] Comment: Interpretive Data Ages < or = [...] last revised on 2018. Testing performed by: [address] [address] Non-HDL Cholesterol 96 mg/dL [facility] Comment: Interpretive Data Ages < or = [...] last revised on 2018. Testing performed by: [address] [address] Chol/HDL ratio 3 [facility] Comment:Testing performed by : [address] [address] Blood 03/12/2024 7:59 AM CDT 03/12/2024 12:11 PM CDT us Micaela Ren MD LAB [place] [address] [address] Department [place] [address] * Dexa Axial Skeleton Bone Density 1 or 2 Site (09/01/2023 11:41 AM CDT) Anatomical Region Laterality Modality Body N/A Other 09/01/2023 9:05 PM CDT Narrative 09/01/2023 9:05 PM CDT EXAM DESCRIPTION: DEXA AXIAL SKELETON BONE DENSITY 1 OR MORE SITES REASON FOR STUDY: 67 y/o year old F with given history of: Menopause Osteoporosis screening 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 MF: FELIPE Report ID: [id number] Reading Location: [place] [address] Micaela Ren MD IMG DXA PROCEDURES Final R esult * Hepatitis C antibody (08/29/2017 7:12 AM CDT) Hep C Ab Negative Negative JESICA COWAN (JORDYN) Comment:Testing performed by : [facility], [address] [place] [address], [facility], [facility] Blood specimen (specimen) 08/29/2017 7:12 AM CDT 08/29/2017 12:16 PM CDT Micaela Ren MD LAB MICROBIOLOGY - GENERAL ORDERABLES Final Result JESICA COWAN (JORDYN) 1 [facility] [place] [address] from Last 3 Months or Most Recently Relevant to Health Maintenance Insurance MEDICARE COMMERCIAL GENERIC MEDICARE [place] [facility] [employer] [facility] CHOICE PLUS MEDICARE [employer] OF [facility] Advance Directives For more information, please contact: [phone] Documents on File Type Date Recorded 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 ADVANCE DIRECTIVE 05/12/2019 DNR ADVANCE DIRECTIVE 09/25/2015 POWER OF A [employer]TORNEY-[employer]ICAL * Full Code (Latest Code Status on File) Date Activated Date Inactivated Comments 12/30/2024 4:34 PM 12/31/2024 4:07 PM * Full Code Date Activated Date Inactivated Comments 12/30/2024 11:11 AM 12/30/2024 4:34 PM * Full Code Date Activated Date Inactivated Comments 11/30/2024 1:24 PM 12/01/2024 6:14 PM Care Teams Jigsaw Operator Relationship Specialty Start Date End Date Micaela Ren MD PCP - General 02/28/17 Filiberto Orona MD [address] [facility] [address]ENZO Balderas [address] [address] Surgeon Orthopedic Surgery 08/24/17 Blayne Christiansen MD [address] [facility] [address] RENZO Balderas [address] [address] Obstetrics and Gynecology 08/24/17 Lennox Tobin MD [address] [facility] [address] RENZO Balderas [address] [address] General Surgery 08/24/17 Berto Samson MD [address] [facility] [address] [place] [address] Consulting Physician Internal Medicine 09/30/17 Lester Hendrix OD [address] [place] [address] Optometry 03/31/18 Bryan Anderson MD [address] [place] [address] Consulting Physician Gastroenterology 05/09/19 Baudilio Parish MD [address] [place] [address] Consulting Physician Endocrinology Diabetes & Metabolism 05/12/19 Zach Khoury MD [address] [place] [address] Consulting Physician Neurology 07/09/21 Anton Sauer MD [address] [facility] [phone] [place] [address] Consulting Physician General Surgery 07/05/22 Tejas Lazcano DC [address] [place] [address] [place] [address] Referring Physician Chiropractic Medicine 08/27/23 Vu Lindsay MD PhD [address] [place] [address] Consulting Physician Orthopedic Surgery 11/22/24
--- OUTSIDE RECORDS SUMMARY | 2025-04-28 16:49 | XMS_ITS | Encounter Summary ---
Author Organization [facility] Address [address] [place] [address] Phone Care Team Providers Care Sales Promoter Name Role Phone Micaela Mckay MD Primary Care Provider [phone] Darryl Hollingsworth MD Unavailable [phone] Vanessa Wilson MD Unavailable [phone] Baljinder Kent MD Unavailable Filiberto Orona MD Unavailable Blayne Christiansen MD Unavailable Lennox Tobin MD Unavailable [phone] Vanessa Wilson MD Unavailable [phone] Berto Samson MD Unavailable Lester Hendrix OD Unavailable [phone] Bryan Anderson MD Unavailable Baudilio Parish MD Unavailable [phone] Zach Khoury MD Unavailable Anton Sauer MD Unavailable [phone] Tejas Lazcano DC Unavailable [phone] Vu Lindsay MD PhD Unavailable [phone] Encounter Details Date Type Department Care Team (Latest Contact Info) Description 09/16/2017 Orders Only [facility] Scanning, Provider Social History Tobacco Use Types Packs/Day Years Used Date Smoking Tobacco: Never Smokeless Tobacco: Never Alcohol Use Standard Drinks/Week Comments Yes 0 (1 standard drink = 0.6 oz pur e alcohol) Comments No Sex and Gender Information Value Date Recorded Sex Assigned at Not on file Legal Sex Female 11:59 PM 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 ACCOUNT REPRESENTATIVE Gender Identity Not on file Sexual Orientation Not on file documented as of this encounter Plan of Treatment Not on file documented as of this encounter Procedures Procedure Name Priority Date/Time Associated Diagnosis Comments SCAN - LABS 09/16/2017 documented in this encounter Results * SCAN - LABS (09/16/2017) us Provider Scanning Final Result documented in this encounter Visit Diagnoses Not on filedocumented in this encounter Care Teams Sales Promoter Relationship Specialty Start Date End Date Micaela Mckay MD PCP - General 02/28/17 Darryl Hollingsworth MD Gastroenterology 08/24/17 10/17/24 Vanessa Wilson MD Surgeon Orthopedic Surgery 08/24/17 06/06/21 Baljinder Kent MD Otolaryngology 08/24/17 10/17/24 Filiberto Orona MD [address] [place] [address] [address] [place] [id number] Surgeon Orthopedic Surgery 08/24/17 Blayne Christiansen MD [address] [place] [address] DR RENZO Balderas [facility] [address] [place] [address] Obstetrics and Gynecology 08/24/17 Lennox Tobin MD [address] [place] [address] [address] RENZO Balderas [facility] [address] [place] [address] General Surgery 08/24/17 Vanessa Wilson MD Surgeon Orthopedic Surgery 08/29/17 06/06/21 Berto Samson MD [address] [address] Consulting Physician Internal Medicine 09/30/17 Lester Hendrix OD [address] [place] [address] Optometry 03/31/18 Bryan Anderson MD [address] [place] [address] Consulting Physician Gastroenterology 05/09/19 Baudilio Parish MD [address] [place] [address] Consulting Physician Endocrinology Diabetes & Metabolism 05/12/19 Zach Khoury MD [address] [place] [address] Consulting Physician Neurology 07/09/21 Anton Sauer MD [address] [facility] [phone] [place] [address] Consulting Physician General Surgery 07/05/22 Tejas Lazcano DC [address] [place] [address] [place] [address] Referring Physician Chiropractic Medicine 08/27/23 Vu Lindsay MD PhD [address] [place] [address] Consulting Physician Orthopedic Surgery 11/22/24 documented as of this encounter
--- OUTSIDE RECORDS SUMMARY | 2025-04-28 16:49 | XMS_ITS | Encounter Summary ---
Author Organization [facility] Address [place] [address] Care Team Providers Care Insurance Consultant Name Role Phone Micaela Mckay MD Primary Care Provider [phone] Darryl Hollingsworth MD Unavailable [phone] Vanessa Wilson MD Unavailable [phone] Baljinder Kent MD Unavailable [phone] Filiberto Orona MD Unavailable [phone] Blayne Christiansen MD Unavailable Lennox Tobin MD Unavailable [phone] Vanessa Wilson MD Unavailable [phone] Berto Samson MD Unavailable Lester Hendrix OD Unavailable Bryan Anderson MD Unavailable Baudilio Parish MD Unavailable [phone] Zach Khoury MD Unavailable Anton Sauer MD Unavailable [phone] Tejas Lazcano DC Unavailable [phone] Vu Lindsay MD PhD Unavailable [phone] Encounter Details Date Type Department Care Team (Late st Contact Info) Description 03/31/2020 Telephone [facility] [address] [place] [address] Milagros Chaves, RT Social History Tobacco Use Types Packs/Day Years Used Date Smoking Tobacco: Never Smokeless Tobacco: Never Alcohol Use Standard Drinks/Week Comments Yes 0 (1 standard drink = 0.6 oz pur e alcohol) very rare PHQ-2 Answer Date Recorded PHQ-2 Score 0 07/24/2019 Comments No Sex and Gender Information Value Date Recorded Sex Assigned at Not on file Legal 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 Gender Identity Not on file Sexual Orientation Not on file 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 Not on file Not on file documented as of this encounter Plan of Treatment Not on file documented as of this encounter Visit Diagnoses Not on filedocumented in this encounter Care Teams Insurance Consultant Relationship Specialty Start Date End Date Micaela Mckay MD PCP - General 02/28/17 Darryl Hollingsworth MD Gastroenterology 08/24/17 10/17/24 Vanessa Wilson MD Surgeon Orthopedic Surgery 08/24/17 06/06/21 Baljinder Kent MD Otolaryngology 08/24/17 10/17/24 Filiberto Orona MD [address] [place] [address] [address] [address] Surgeon Orthopedic Surgery 08/24/17 Blayne Christiansen MD [address] [place] [address] [address] Balder[address] [facility] [address] [place] [address] Obstetrics and Gynecology 08/24/17 Lennox Tobin MD [address] [place] [address] [address] [address] [place] [address] General Surgery 08/24/17 Vanessa Wilson MD Surgeon Orthopedic Surgery 08/29/17 06/06/21 Berto Samson MD [address] [facility] [address] [place] [address] Consulting Physician Internal Medicine 09/30/17 Lester Hendrix OD [address] [place] [address] Optometry 03/31/18 Bryan Anderson MD [address] [place] [address] Consulting Physician Gastroenterology 05/09/19 Baudilio Parish MD [address] [place] [address] Consulting Physician Endocrinology Diabetes & Metabolism 05/12/19 Zach Khoury MD [address] [place] [address] Consulting Physician Neurology 07/09/21 Anton Sauer MD [address] [facility] [phone] [place] [address] Consulting Physician General Surgery 07/05/22 Tejas Lazcano DC [address] [place] [address] [place] [address] Referring Physician Chiropractic Medicine 08/27/23 Vu Lindsay MD PhD [address] [place] [address] Consulting Physician Orthopedic Surgery 11/22/24 documented as of this encounter
[2025-04-28 16:57] VITALS: BP 151/90; PULSE 62; RESP 16; TEMP 36.2; O2SAT 99
--- NOTE | 2025-04-28 17:19 | ED_ITS ---
HPI - Extremity Injury (Upper) General Chief Complaint: Extremity Injury, Upper Stated Complaint: left wrist injury Time Seen by Provider: 04/28/25 18:01 Source: patient Mode of arrival: ambulatory Limitations: no limitations History of Present Illness HPI narrative: 69-year-old female presented for complaint of left wrist pain. Onset today after a fall at 1100. Says she tripped and fell backwards and landed on the hand. Says she did not 'fall hard.' Reports the pain and swelling is mild.. Denies change in range of motion, deformity, bruising, numbness, tingling or weakness. Related Data Home Medications ?Medication ?Instructions ?Recorded ?Confirmed ?Last Taken ?Type azelastine 137 mcg (0.1 %) nasal intranasal 04/28/25 Unknown History spray carvedilol 25 mg tablet mg 04/28/25 Unknown History levothyroxine 150 mcg tablet mcg 04/28/25 Unknown History lorazepam 0.5 mg tablet mg 04/28/25 Unknown History montelukast 10 mg tablet mg 04/28/25 Unknown History rosuvastatin 20 mg tablet mg 04/28/25 Unknown History Allergies Allergy/AdvReac Type Severity Reaction Status Date / Time No Known Allergies Allergy Unverified 04/28/25 17:01 Review of Systems Review of Systems: CONSTITUTIONAL: Denies body aches, fever, chills EYES: Denies visual changes ENT: Denies rhinorrhea, congestion CARDIOVASCULAR: Denies chest pain, palpitations, or edema. RESPIRATORY: Denies cough or dyspnea. SKIN: Denies rash, itching, or wounds. MUSCULOSKELETAL: reports Left wrist pain NEUROLOGIC: Denies headache, numbness, tingling, or weakness. All systems reviewed & are unremarkable except as noted in HPI and below [facility] Comments At time of signature, I have reviewed and agree with nursing past medical, surgical, social and family history unless otherwise noted. Please see nursing chart for further information. There is no relevant family history pertinent to the presenting complaint Exam Narrative: GENERAL: Well-appearing CHEST: Speaks in full sentences. No respiratory distress. HEART: Regular rate and rhythm. Normal and equal peripheral pulses. EXTREMITIES: Left hand has normal strength and sensation, slightly limited range of motion with flexion/extension/rotation of left wrist due to pain with movement. Mild swelling to dorsal wrist. No ecchymosis, No point tenderness. No open wounds, or obvious deformity; alignment normal, pulse palpable and equal bilaterally, skin warm, dry, pink. Capillary refill less than 3 seconds. SKIN: Warm, dry NEURO: Alert and oriented x3. PSYCH: Normal mood and affect Course Course Emergency Course: Patient is aware of diagnosis, understands and agrees to treatment plan. Anticipatory guidance given. Patient agrees to follow-up as directed and is aware of reasons to seek care at the emergency department. Portions of this record may have been created with voice recognition software Level of Care: Express Care Visit Vital Signs Vital signs: Vital Signs Temperature 97.2 F L 04/28/25 16:57 Pulse Rate 62 04/28/25 16:57 Respiratory Rate 16 04/28/25 16:57 Blood Pressure 151/90 H 04/28/25 16:57 Pulse Oximetry 99 04/28/25 16:57 Oxygen Delivery Room Air 04/28/25 16:57 Temperature 97.2 F L 04/28/25 16:57 Pulse Rate 62 04/28/25 16:57 Respiratory Rate 16 04/28/25 16:57 Blood Pressure 151/90 H 04/28/25 16:57 Pulse Oximetry 99 04/28/25 16:57 Oxygen Delivery Room Air 04/28/25 16:57 Reviewed MDM - Extremity Injury (Upper) MDM Narrative Medical decision making narrative: Discussed physical exam findings an x-ray. Dionisio wrap applied and patient will get a wrist splint. She has an established site identification specialist she will call tomorrow to follow-up.. Advised supportive measures and signs/symptoms to go to the ER. Pt is appropriate for outpt treatment and f/u. Differential Diagnosis Differential diagnosis: Likely sprain and strain of wrist and fracture of wrist Imaging Data Radiologist's impression: Patient: Carla Azul : 1955 MR#: [id number] Age: 69 Acct:[id number] Loc: [facility] ADM Date: 04/28/25Attending Dr: Ordering Physician: Candace Ruiz APRN Date of Service: 04/28/25 Procedure(s): XR wrist LT min 3V Accession Number(s): [id number] cc: Candace Ruiz APRN; Woody, Micaela RUBY~ XR wrist LT min 3V Ordering provider: Candace Ruiz APRN History: . pain, fall . Comparison: None. FINDINGS: BONES: Possible lucency in the scaphoid bone. Follow-up advised. Postoperative changes in the distal radius. Old fracture in the ulnar styloid. JOINT SPACES: Narrowing of the radiocarpal joint. 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 SOFT TISSUES: Normal. IMPRESSION: No definite acute osseous abnormality left wrist. Possible lucency in the scaphoid bone. Follow-up advised. 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 Discharge Plan Discharge Clinical Impression: Acute pain of left wrist Patient Disposition: Home Condition: Stable Instructions: Wrist Sprain (ED) Additional Instructions: Rest and elevate the left hand. Avoid lifting, pushing, pulling or throwing etc.. Apply ice 15-20 minute intervals several times a day Keep it wrapped with DIONISIO or use a wrist splint/thumb spica splint Motrin 600mg every 8 hours, alternate with Tylenol 1000mg every 8 hours as needed Follow up with your primary care provider as needed Follow-up with your site identification specialist Go to the ER for any worsening symptoms or concerns Patient Language: Yemeni Prescriptions: No Action carvedilol 25 mg tablet lorazepam 0.5 mg tablet levothyroxine 150 mcg tablet montelukast 10 mg tablet azelastine 137 mcg (0.1 %) spray,non-aerosol INTRANASAL rosuvastatin 20 mg tablet Follow-up/Referrals: Woody,MD Micaela [Primary Care Provider] - Time of Disposition: 18:16
== END 2025-04-28 18:22 | disposition home or self-care (01) ==
PROVIDERS: Emergency Provider Nurse Practitioner Family; PCP Internal Medicine Geriatric Medicine
DX: M25.532 Pain in left wrist (principal)
CPT/HCPCS: 73110; 99203; G0463